=== PATIENT | male | born 1975 | race Caucasian/White ===

== ENCOUNTER 2020-02-26 18:01 | Emergency (ER) | payer OTHER, SELFPAY ==
[2020-02-26 18:13] VITALS: BP 165/91; PULSE 61; RESP 18; TEMP 36.6; O2SAT 98; BMI 34.3
--- NOTE | 2020-02-26 19:06 | CT_ITS ---
EXAMINATION: CT ABDOMEN AND PELVIS WITH CONTRAST CLINICAL INFORMATION: LLQ abd pain. COMPARISON: None. TECHNIQUE: Multidetector volumetric imaging was performed from the superior aspect of the liver through the pubic symphysis following administration of 85 cc of Omnipaque intravenous contrast Sagittal and coronal reformatted images were obtained on the technologist workstation.. This CT examination was performed using dose optimization techniques as appropriate, variously including the following: *Automated exposure control *Adjustment of mA and/or kV according to patient size (this includes techniques or standardized protocols for targeted exams where dose is matched to indication/reason for exam; i.e. extremities or head) *Use of iterative reconstruction technique DLP: 774 mGy-cm FINDINGS: LUNG BASES: The visualized lung bases are unremarkable. LIVER, GALLBLADDER, AND BILIARY TREE: There is diffuse fatty infiltration of the liver with mild focal fatty sparing adjacent to the gallbladder fossa. No focal hepatic lesion nor biliary ductal dilatation. The gallbladder is contracted but otherwise unremarkable with no evidence of radiopaque gallstones, gallbladder wall thickening, or obvious pericholecystic inflammatory changes. PANCREAS: Unremarkable. SPLEEN: Unremarkable. ADRENAL GLANDS: Unremarkable. KIDNEYS AND URETERS: The kidneys are normal in size, shape, and attenuation. No hydronephrosis, hydroureter, or calculi seen. No perinephric stranding. BLADDER: Unremarkable. GASTROINTESTINAL TRACT: The small and large bowel are unremarkable. The appendix is nonvisualized but no focal inflammatory changes are seen in the right lower quadrant. ABDOMINAL WALL: No significant hernia is appreciated. LYMPHOVASCULAR STRUCTURES: No lymphadenopathy. The aorta is unremarkable. PELVIC VISCERA: Unremarkable. OSSEOUS STRUCTURES: Unremarkable. IMPRESSION: Diffuse fatty infiltration the liver but no focal hepatic lesion nor biliary ductal dilatation. Visualized colon is unremarkable. No focal inflammatory changes seen. No acute abnormality seen in the left lower quadrant.
--- NOTE | 2020-02-26 19:07 | ED_ITS ---
HPI - Abdominal Pain General Chief Complaint: Abdominal Pain Stated Complaint: ABD PAIN Time Seen by Provider: 02/26/20 19:02 Source: patient Mode of arrival: ambulatory History of Present Illness HPI narrative: 44-year-old male with past medical history of appendectomy presenting to ED complaining of intermittent /worsening LLQ abdominal pain times months. Reports associated loose stool. Denies fever, chills, nausea /vomiting, dysuria / hematuria, testicular/ scrotal pain /swelling MD elicited complaint: abdominal pain Related Data Previous Rx's Medication Instructions Recorded dicyclomine 20 mg PO BID 14 Days #28 tab 02/26/20 Allergies Allergy/AdvReac Type Severity Reaction Status Date / Time No Known Allergies Allergy Unverified 01/27/20 17:38 Review of Systems Review of Systems Constitutional: No Weight loss, No Fever, No Chills Cardiovascular: No Chest Pain, No SOB Respiratory: No Cough, No Sputum Gastrointestinal: no Nausea, No Vomiting, + Diarrhea, No Constipation, + Abdominal pain Genitourinary: No Dysuria, No Urinary Frequency, No Hematuria, No Urgency, No Flank Pain, No Urinary Flow Changes, No Hesitancy Skin: No Skin Lesions, No rash Yes all other systems are reviewed and are negative Physical Exam Vital Signs: Vital Signs: Vital Signs Temp Pulse Resp BP Pulse Ox 02/26/20 20:55 62 15 160/88 H 98 02/26/20 18:13 97.9 F 61 18 165/91 H 98 Body Mass Index 34.3 Const: General: cooperative and healthy appearing Orientation/con sciousness: patient oriented x3 Limitations: no limitations HENMT: Head: Yes normal to inspection Ears: hearing grossly normal bilaterally General nose exam: Normal external nose present Face and sinus: Yes normal facial exam Eyes: General: appearance normal, both eyes and all related structures EOM: EOMs intact bilaterally Neck: Neck: Yes normal visual inspection Resp: Effort & Inspection: normal respiratory effort Cardio: Rate: regular rate GI: Inspection: Yes normal to inspection Palpation (GI): Soft to palpation, Tenderness to palpation present (GI) in the LLQ, no guarding and not rigid Skin: Rashes: no rashes Wounds: no wounds Neuro: General: patient oriented x3 Gait exam (Neuro): Normal gait present Extrem: General: Yes normal to inspection Course Course Course Narrative: -- labs and UA unremarkable - CT showing diffuse fatty infiltration of the liver. No focal inflammatory changes. No acute abnormality in the left lower quadrant Lab and imaging results discussed with patient including worrisome signs and symptoms and strict return precautions. Patient is to follow-up with GI/is PCP MDM - Abdominal Pain MDM Narrative Medical decision making narrative: 44-year-old male with past medical history of appendectomy presenting to ED complaining of intermittent /worsening LLQ abdominal pain times months. On exam VSS, in the ED, abdomen soft with left lower quadrant tenderness. No rebound or guarding. No CVAT. Concern for diverticulitis vs renal stone vs gastroenteritis/gastritis /colitis. Plan: Labs, UA, CT AP, IVF/symptomatic treatment/reassess Differential Diagnosis Differential diagnosis: Likely abdominal pain, calculus of kidney, diverticulitis, gastroenteritis, gastritis, pancreatitis and renal colic Lab Data Result diagrams: 02/26/20 19:30 02/26/20 19:30 Labs: Lab Results 02/26/20 02/26/20 02/26/20 Range/Units 19:30 19:30 19:30 WBC 7.3 (4.8-10.8) X10*3/uL RBC 5.24 (4.60-5.80) X10*6/uL Hgb 16.0 (14.0-18.0) g/dl Hct 46.9 (42-52) % MCV 89.5 (80-98) fL MCH 30.5 (27.0-33.0) pg MCHC 34.1 (31.0-36.0) g/dl RDW 12.4 (11.0-16.0) % Plt Count 220 (160-400) X10*3/uL MPV 12.0 (9.4-12.4) fL Immature Gran % (Auto) 0.1 (0.0-0.4) % Neut % (Auto) 50.1 (45-73) % Lymph % (Auto) 38.4 (20-40) % Child[place] % (Auto) 9.3 (2-11) % Eos % (Auto) 1.6 (0-4) % Baso % (Auto) 0.5 (0-2) % Lymph # (Auto) 2.8 (1.2-4.9) X10*3/uL Child[place] # (Auto) 0.7 (0.1-1.2) X10*3/uL Eos # (Auto) 0.1 (0.0-0.4) X10*3/uL Baso # (Auto) 0.0 (0.0-0.2) X10*3/uL Abs Immat Gran (auto) 0.01 (0.00-0.03) X10*3/uL Absolute Neuts (auto) 3.7 (2.0-8.3) X10*3/uL Absolute Nucleated RBC 0.000 (0.0-0.012) X10*3/uL Nucleated RBC % (auto) 0.0 (0.0-0.2) /100WBC Hold Blue Top SEE NOTE Sodium 139 (135-145) mmol/L Potassium 4.2 (3.3-5.1) mmol/l Chloride 104 (96-108) mmol/L Carbon Dioxide 26 (22-29) mmol/L Anion Gap 13 (12-20) BUN 11 (9-16) mg/dL Creatinine 1.08 (0.5-1.4) mg/dL Estim Creat Clear Calc 88.6 Estimated GFR > 60 Random Glucose 80 (60-115) mg/dL Calcium 10.6 H (8.4-10.2) mg/dL Magnesium 2.0 (1.6-2.6) mg/dL Total Bilirubin 0.5 (0.0-1.0) mg/dL Direct Bilirubin < 0.2 (0.0-0.5) mg/dL AST 32 (5-37) U/L ALT 63 H (0-40) U/L Alkaline Phosphatase 98 (39-117) U/L Total Protein 8.3 H (6.5-8.0) g/dL Albumin 4.9 (3.5-5.0) g/dL Lipase 27 (8-78) U/L Urine Color Urine Appearance Urine pH (5.0-8.0) Ur Specific [place] (1.005-1.025) Urine Protein (NEG-TRACE) MG/DL Urine Glucose (UA) (NEG) MG/DL Urine Ketones (NEG) MG/DL Urine Blood (NEG) Urine Nitrite (NEG) Ur Leukocyte Esterase (NEG) Urine RBC (0) /HPF Urine WBC (0-4) /HPF Ur Squamous Epith Cells /LPF Urine Bacteria /LPF 02/26/20 Range/Units 19:55 WBC (4.8-10.8) X10*3/uL RBC (4.60-5.80) X10*6/uL Hgb (14.0-18.0) g/dl Hct (42-52) % MCV (80-98) fL MCH (27.0-33.0) pg MCHC (31.0-36.0) g/dl RDW (11.0-16.0) % Plt Count (160-400) X10*3/uL MPV (9.4-12.4) fL Immature Gran % (Auto) (0.0-0.4) % Neut % (Auto) (45-73) % Lymph % (Auto) (20-40) % Childress % (Auto) (2-11) % Eos % (Auto) (0-4) % Baso % (Auto) (0-2) % Lymph # (Auto) (1.2-4.9) X10*3/uL Child[place] # (Auto) (0.1-1.2) X10*3/uL Eos # (Auto) (0.0-0.4) X10*3/uL Baso # (Auto) (0.0-0.2) X10*3/uL Abs Immat Gran (auto) (0.00-0.03) X10*3/uL Absolute Neuts (auto) (2.0-8.3) X10*3/uL Absolute Nucleated RBC (0.0-0.012) X10*3/uL Nucleated RBC % (auto) (0.0-0.2) /100WBC Hold Blue Top Sodium (135-145) mmol/L Potassium (3.3-5.1) mmol/l Chloride (96-108) mmol/L Carbon Dioxide (22-29) mmol/L Anion Gap (12-20) BUN (9-16) mg/dL Creatinine (0.5-1.4) mg/dL Estim Creat Clear Calc Estimated GFR Random Glucose (60-115) mg/dL Calcium (8.4-10.2) mg/dL Magnesium (1.6-2.6) mg/dL Total Bilirubin (0.0-1.0) mg/dL Direct Bilirubin (0.0-0.5) mg/dL AST (5-37) U/L ALT (0-40) U/L Alkaline Phosphatase (39-117) U/L Total Protein (6.5-8.0) g/dL Albumin (3.5-5.0) g/dL Lipase (8-78) U/L Urine Color YELLOW Urine Appearance CLEAR Urine pH 7.0 (5.0-8.0) Ur Specific [place] 1.020 (1.005-1.025) Urine Protein NEG (NEG-TRACE) MG/DL Urine Glucose (UA) NEG (NEG) MG/DL Urine Ketones NEG (NEG) MG/DL Urine Blood TRACE (NEG) Urine Nitrite NEG (NEG) Ur Leukocyte Esterase NEG (NEG) Urine RBC 0-2 (0) /HPF Urine WBC 0 (0-4) /HPF Ur Squamous Epith Cells NONE /LPF Urine Bacteria TRACE /LPF Discharge Plan Discharge Clinical Impression: Abdominal pain Patient Disposition: Home, Self-Care Instructions: Abdominal Pain (ED) Additional Instructions: your blood work was unremarkable today in the ED. Your CT scan showed fatty liver, however no other acute abnormality Bentyl as an antispasmodic medication, take as prescribed Make sure your staying hydrated at home Follow-up with GI and your primary care doctor Prescriptions: New dicyclomine 20 mg tablet 20 mg PO BID 14 Days Qty: 28 RF: 0 Referrals: Blu Boogie MD [Physician] - 5 days PMF Past Medical History Attestation statement: The following information was validated with the patient. Medical History (Updated 02/26/20 @ 21:37 by COLBY Sr) No known health problems No known health problems Surgical History (Updated 02/26/20 @ 19:09 by COLBY Sr) History of appendectomy Social History Social History Alcohol intake: never Smoked in Last 30 Days: No Use of substances other than those prescribed or required for medical reasons: No Advance Directives: No Advance Directives Information Provided: Yes
[2020-02-26 19:36] LABS: MANUAL DIFF FLAG NO
[2020-02-26 19:37] LABS: Basophils Percent Auto 0.5 % (0-2); Eosinophils Absolute Auto 0.1 X10*3/uL (0.0-0.4); Eosinophils Percent Auto 1.6 % (0-4); Hematocrit 46.9 % (42-52); Imm Gran Abs Auto 0.01 X10*3/uL (0.00-0.03); Imm Gran Pct Auto 0.1 % (0.0-0.4); Lymphocytes Absolute Auto 2.8 X10*3/uL (1.2-4.9); Lymphocytes Percent Auto 38.4 % (20-40); Mean Corpuscular HGB Conc 34.1 g/dl (31.0-36.0); Mean Corpuscular Hemoglobin 30.5 pg (27.0-33.0); Mean Corpuscular Volume 89.5 fL (80-98); Monocytes Absolute Auto 0.7 X10*3/uL (0.1-1.2); Monocytes Percent Auto 9.3 % (2-11); Neutrophils Absolute Auto 3.7 X10*3/uL (2.0-8.3); Neutrophils Percent Auto 50.1 % (45-73); Platelet Count 220 X10*3/uL (160-400); Red Blood Count 5.24 X10*6/uL (4.60-5.80); Red Cell Distribution Width 12.4 % (11.0-16.0); White Blood Count 7.3 X10*3/uL (4.8-10.8)
[2020-02-26 20:01] LABS: Glucose Urine UA NEG (NEG); Leukocyte Esterase Urine NEG (NEG); Nitrite Urine NEG (NEG); Urine Blood TRACE (NEG); Urine Ketones NEG (NEG); Urine Protein NEG (NEG-TRACE)
[2020-02-26 20:02] LABS: Appearance Urine CLEAR; Color Urine YELLOW
[2020-02-26 20:07] LABS: RBC Urine 0-2 /HPF (0); WBC Urine 0 /HPF (0-4)
[2020-02-26 20:08] LABS: Bacteria Urine TRACE /LPF
[2020-02-26 20:12] LABS: Alanine Aminotransferase 63 U/L (0-40); Albumin Level 4.9 g/dL (3.5-5.0); Alkaline Phosphatase 98 U/L (39-117); Anion Gap 13 (12-20); Aspartate Amino Transferase 32 U/L (5-37); Bilirubin Direct < 0.2 mg/dL (0.0-0.5); Bilirubin Total 0.5 mg/dL (0.0-1.0); Blood Urea Nitrogen 11 mg/dL (9-16); Calcium 10.6 mg/dL (8.4-10.2); Carbon Dioxide 26 mmol/L (22-29); Chloride 104 mmol/L (96-108); Creatinine Clr Calc Pharmacy 88.6; Estimated Glomerular Filt Rate > 60; Glucose Random 80 mg/dL (60-115); Lipase 27 U/L (8-78); Potassium 4.2 mmol/l (3.3-5.1); Sodium 139 mmol/L (135-145); Total Protein 8.3 g/dL (6.5-8.0)
[2020-02-26] MEDS: iohexoL 350 MG/ML 100 ML INFUS..BTL IV (20:38)
[2020-02-26 20:55] VITALS: BP 160/88; PULSE 62; RESP 15; O2SAT 98
[2020-02-26] MEDS: ondansetron HCL 4 MG/2 ML VIAL IVPUSH (20:58)
[2020-02-26] MEDS: Famotidine/PF 20 MG/2 ML VIAL IVPUSH (20:58)
== END 2020-02-26 22:00 | disposition home or self-care (01) ==
PROVIDERS: Physician Assistant; Emergency Provider Emergency Medicine
DX: R10.32 Left lower quadrant pain (principal)
CPT/HCPCS: 36415; 74177; 80048; 80076; 81001; 81003; 83690; 83735; 85025; 96374; 96375; 99284; J2405

== ENCOUNTER 2020-03-28 12:50 | Outpatient (REF) | payer OTHER, SELFPAY ==
[2020-03-28 14:06] LABS: Alanine Aminotransferase 106 U/L (0-40); Albumin Level 4.7 g/dL (3.5-5.0); Alkaline Phosphatase 92 U/L (39-117); Aspartate Amino Transferase 56 U/L (5-37); Bilirubin Direct 0.2 mg/dL (0.0-0.5); Bilirubin Total 0.5 mg/dL (0.0-1.0); Iron 94 mcg/dL (45-160); Percent Iron Saturation 23 % (15-50); Total Iron Binding Capacity 407 mcg/dL (228-428); Total Protein 8.1 g/dL (6.5-8.0); Unsaturated Iron Binding 313 ug/dL
[2020-03-28 14:19] LABS: Ferritin 117 ng/mL (20-250)
[2020-03-29 08:08] LABS: HBS Num1 > 1000.00 mIU/mL (0-7.99); HBc Num1 0.07 S/CO (0.00-0.79); HBsAGNum1 0.13 S/CO (0.00-0.99); Hepatitis B Core Antibody Nonreactive (Nonreactive); Hepatitis B Surface Antigen Negative (Negative); ~HepC Num1 0.08 S/CO (0.00-0.79); ~Hepatitis B Surface Antibody REACTIVE (Nonreactive); ~Hepatitis C Antibody Nonreactive (Nonreactive)
[2020-03-29 16:46] LABS: Ceruloplasmin 26 mg/dL (18-36)
== END 2020-03-28 12:51 | disposition home or self-care (01) ==
LOC: HO.LAB 12:50
PROVIDERS: Visit Provider Internal Medicine
DX: Z01.84 Encounter for antibody response examination (principal); R79.89 Other specified abnormal findings of blood chemistry
CPT/HCPCS: 80076; 82390; 82728; 83540; 86704; 86706; 86803; 87340

== ENCOUNTER 2020-03-31 17:22 | Outpatient (REF) | payer OTHER, SELFPAY | END 2020-03-31 17:23 | disposition home or self-care (01) | LOC: HO.LAB 17:22 | PROVIDERS: Visit Provider Internal Medicine | DX: Z20.828 Contact with and (suspected) exposure to other viral communicable diseases (principal) | CPT/HCPCS: C9803; U0003 ==

== ENCOUNTER 2020-04-13 14:53 | Outpatient (REF) | payer OTHER, SELFPAY | END 2020-04-13 14:54 | disposition home or self-care (01) | LOC: HO.LAB 14:53 | PROVIDERS: Visit Provider Internal Medicine | DX: Z20.828 Contact with and (suspected) exposure to other viral communicable diseases (principal) | CPT/HCPCS: C9803; U0003 ==

== ENCOUNTER 2020-05-09 09:13 | Emergency (ER) | payer OTHER, SELFPAY ==
--- NOTE | 2020-05-09 | ECG_ITS ---
Test Reason : CHEST PAIN Blood Pressure : / mmHG Vent. Rate : 070 BPM Atrial Rate : 070 BPM P-R Int : 160 ms QRS Dur : 088 ms QT Int : 384 ms P-R-T Axes : 016 013 018 degrees QTc Int : 414 ms Normal sinus rhythm Nonspecific T wave abnormality Abnormal ECG No previous ECGs available Referred By: Generic ED Physician Electronically Signed By:JANETT PIZARRO
--- NOTE | 2020-05-09 | XR_ITS ---
EXAMINATION: XR CHEST CLINICAL INFORMATION: Chest pain. COMPARISON: None TECHNIQUE: 2 views of the chest were obtained. FINDINGS: No significant abnormality is noted involving the heart, lungs, mediastinum, bony thorax or soft tissues. XR/XR chest 2V IMPRESSION: No acute cardiopulmonary process.
[2020-05-09 09:15] VITALS: BP 158/80; PULSE 81; RESP 20; TEMP 36.8; O2SAT 98; BMI 32.5
[2020-05-09 11:52] LABS: Basophils Percent Auto 0.3 % (0-2); Eosinophils Absolute Auto 0.1 X10*3/uL (0.0-0.4); Eosinophils Percent Auto 1.2 % (0-4); Hematocrit 43.8 % (42-52); Imm Gran Abs Auto 0.01 X10*3/uL (0.00-0.03); Imm Gran Pct Auto 0.2 % (0.0-0.4); Lymphocytes Absolute Auto 2.4 X10*3/uL (1.2-4.9); Lymphocytes Percent Auto 36.8 % (20-40); Mean Corpuscular HGB Conc 34.2 g/dl (31.0-36.0); Mean Corpuscular Hemoglobin 30.4 pg (27.0-33.0); Mean Corpuscular Volume 88.7 fL (80-98); Mean Platelet Volume 12.3 fL (9.4-12.4); Monocytes Absolute Auto 0.6 X10*3/uL (0.1-1.2); Monocytes Percent Auto 9.2 % (2-11); Neutrophils Absolute Auto 3.4 X10*3/uL (2.0-8.3); Neutrophils Percent Auto 52.3 % (45-73); Platelet Count 201 X10*3/uL (160-400); Red Blood Count 4.94 X10*6/uL (4.60-5.80); Red Cell Distribution Width 12.8 % (11.0-16.0); White Blood Count 6.5 X10*3/uL (4.8-10.8)
[2020-05-09 11:53] LABS: MANUAL DIFF FLAG NO
[2020-05-09 12:19] LABS: Anion Gap 13 (12-20); Blood Urea Nitrogen 10 mg/dL (9-16); Calcium 9.5 mg/dL (8.4-10.2); Carbon Dioxide 26 mmol/L (22-29); Chloride 106 mmol/L (96-108); Creatinine Clr Calc Pharmacy 91.4; Estimated Glomerular Filt Rate > 60; Glucose Random 92 mg/dL (60-115); Potassium 4.2 mmol/l (3.3-5.1); Sodium 141 mmol/L (135-145)
[2020-05-09 12:27] LABS: Troponin-I High Sensitivity < 3.5 ng/L (<3.5-35.0)
--- NOTE | 2020-05-09 14:15 | PC.NURSE ---
TO BED 12 AFTER EXTENDED WAIT IN WR. PROTOCOL LABS, EKG AND XRAY ALL UNREMARKABLE. PT'S PRIMARY CONCERN IS A SORE THROAT. VITALS UPDATED
[2020-05-09 14:17] VITALS: BP 149/63; PULSE 61; O2SAT 97
--- NOTE | 2020-05-09 14:27 | ED.CHESTPAIN ---
HPI - Chest Pain General Chief Complaint: Chest Pain Stated Complaint: chest pain Time Seen by Provider: 05/09/20 14:21 Source: patient Mode of arrival: ambulatory Limitations: no limitations History of Present Illness HPI narrative: 45yoM c PMHx of hypertension, GERD and depression presenting to the ED c c/o chest wall pain after caring a marble table and getting hit with it on the left side of his chest worse with palpitation or movement. Patient denies any other injuries from this. Also reports that he has has had a scratchy/sore throat for the past 2 days although reports he was tested for COVID at [facility] approximately 3 days ago and was just called today that it was negative. Denies any other complaints or concerns at this time. Denies recent sick contacts or travel. Related Data Previous Rx's Medication Instructions Recorded dicyclomine 20 mg PO BID 14 Days #28 tab 02/26/20 amoxicillin-pot clavulanate 1 tab PO BID 10 Days #20 tab 05/09/20 [Augmentin] cyclobenzaprine 10 mg PO TID PRN #10 tab 05/09/20 naproxen 500 mg PO BID PRN #10 tab 05/09/20 Allergies Allergy/AdvReac Type Severity Reaction Status Date / Time No Known Allergies Allergy Unverified 01/27/20 17:38 Review of Systems Review of Systems: Constitutional : No Weight loss, No Fever, No Chills, No Night Sweats, No Fatigue, No Malaise ENT/Mouth : No Hearing loss, No Ear Pain, No Nasal Congestion, No Sinus Pain, No Hoarseness, + sore throat, No Rhinorrhea, No Swallowing Difficulty Eyes: No Eye Pain, No Swelling, No Redness, No Foreign Body, No Discharge, No Vision Changes Cardiovascular : + Chest wall pain, No SOB, no Dyspnea on Exertion, No Orthopnea, No Edema, No extremity swelling, No Palpitations Respiratory : No Cough, No Sputum, No Wheezing, No Dyspnea Gastrointestinal : No Nausea, No Vomiting, No Diarrhea, No abdominal Pain, No Hematochezia, No Melena Genitourinary : No irregular bleeding, No Dysuria, No Urinary Frequency, No Hematuria, No Urinary Incontinence, No Urgency, No Flank Pain, No Urinary Flow Changes, No Hesitancy Musculoskeletal : No joint pain, No Myalgias, No Joint Swelling Skin : No Skin Lesions, No rash Neuro : No Weakness, No Numbness, No Paresthesias, No Loss of Consciousness, No Dizziness, No Headache Psych : No Anxiety/Panic, No Depression, No SI/HI/AH/VH Heme/Lymph: No Bruising, No Bleeding,No Lymphadenopathy Endocrine : No Polyuria, No Polydipsia, No Temperature Intolerance Yes all other systems are reviewed and are negative [facility] Past Medical History Attestation statement: The following information was validated with the patient. Medical History (Updated 05/09/20 @ 14:43 by COLBY Juarez) No known health problems No known health problems Surgical History History of appendectomy Social History Social History Alcohol intake: never Advance Directives: No Advance Directives Information Provided: No Physical Exam Vital Signs: Vital Signs: Last Vital Signs Temp 98.2 F 05/09/20 09:15 Pulse 61 05/09/20 14:17 Resp 20 05/09/20 09:15 BP 149/63 H 05/09/20 14:17 Pulse Ox 97 05/09/20 14:17 Body Mass Index 32.5 vital signs have been reviewed as normal and appeared to be correct. Blood pressure normal. Heart rate normal. Respiration rate normal. Temperature normal. Oxygen saturation normal. Appearance: Alert. Oriented X3. No acute distress. Head: Normal external exam. Normocephalic. Atraumatic. No Varela signs noted. No raccoon eyes noted Eyes: PERRLA. EOMI. Conjunctiva and sclera normal. Eyelids normal. ENT: EAC normal. TM's Normal. Bilateral tonsils erythematous with exudate noted. Not consistent with peritonsillar abscess Uvula midline. Moist mucous membranes. No trismus noted. No drooling noted. No muffled voice noted. Neck: Normal inspection. Neck supple. FROM. No adenopathy. Thyroid Normal. No meningeal signs. No neck mass noted. CVS: Normal heart rate and rhythm. Heart sound normal. No murmurs noted. Pulses normal throughout. Respiratory: No respiratory distress. Painless inspiration. Breath sounds normal. No wheezes/rales/rhonchi noted. Chest with tenderness to palpation of anterior left chest wall with ecchymosis noted. No accessory muscle usage noted or decreased air movement noted. Abdomen: Soft and nontender. Bowel sounds normal in all 4 quadrants. No distention noted. No organomegaly noted. No visible injury noted. Back: No CVA tenderness. Full range of motion noted. Skin: Skin warm and dry. Normal skin color. Normal skin turgor. No rashes/lesions/lacerations noted. Extremities: No lower extremity edema. Extremities exhibit normal range of motion. Extremities nontender. Neuro: Oriented X 3. No motor deficit. No sensory deficit. Reflexes normal. Course Course Course Narrative: 45yoM c PMHx of hypertension, GERD and depression presenting to the ED c c/o chest wall pain after caring a marble table and getting hit with it on the left side of his chest worse with palpitation or movement x 2-3 days ago. Patient also reports a sore throat. Denies sick contacts or recent travel. Denies any other symptoms complaints or concerns at this time. - Patient had a mechanical injury has reproducible pain and ecchymosis noted. Patient also reports this pain has been consistent for the last 2-3 days after the injury. - therefore labs obtained and all within normal limits including the troponin. EKG is normal sinus rhythm with nonspecific T-wave abnormality no acute ischemic changes noted at this time. - therefore explained to the patient that most likely he has muscle strain and will DC home with symptomatic treatment will also swab the patient for rapid strep/COVID/swab/RSV and treat for pharyngitis and instructions to return if any new or worsening symptoms. Patient and agrees with plan. MDM - Chest Pain Medical Records Data Attestation: I reviewed the patient's medical records. Lab Data Attestation: I reviewed the patient's lab results. Result diagrams: 05/09/20 11:44 05/09/20 11:44 Labs: Lab Results 05/09/20 05/09/20 05/09/20 Range/Units 11:44 11:44 11:44 WBC 6.5 (4.8-10.8) X10*3/uL RBC 4.94 (4.60-5.80) X10*6/uL Hgb 15.0 (14.0-18.0) g/dl Hct 43.8 (42-52) % MCV 88.7 (80-98) fL MCH 30.4 (27.0-33.0) pg MCHC 34.2 (31.0-36.0) g/dl RDW 12.8 (11.0-16.0) % Plt Count 201 (160-400) X10*3/uL MPV 12.3 (9.4-12.4) fL Immature Gran % (Auto) 0.2 (0.0-0.4) % Neut % (Auto) 52.3 (45-73) % Lymph % (Auto) 36.8 (20-40) % [place] % (Auto) 9.2 (2-11) % Eos % (Auto) 1.2 (0-4) % Baso % (Auto) 0.3 (0-2) % Lymph # (Auto) 2.4 (1.2-4.9) X10*3/uL [place] # (Auto) 0.6 (0.1-1.2) X10*3/uL Eos # (Auto) 0.1 (0.0-0.4) X10*3/uL Baso # (Auto) 0.0 (0.0-0.2) X10*3/uL Abs Immat Gran (auto) 0.01 (0.00-0.03) X10*3/uL Absolute Neuts (auto) 3.4 (2.0-8.3) X10*3/uL Absolute Nucleated RBC 0.000 (0.0-0.012) X10*3/uL Nucleated RBC % (auto) 0.0 (0.0-0.2) /100WBC Hold Blue Top SEE NOTE Sodium 141 (135-145) mmol/L Potassium 4.2 (3.3-5.1) mmol/l Chloride 106 (96-108) mmol/L Carbon Dioxide 26 (22-29) mmol/L Anion Gap 13 (12-20) BUN 10 (9-16) mg/dL Creatinine 1.01 (0.5-1.4) mg/dL Estim Creat Clear Calc 91.4 Estimated GFR > 60 Random Glucose 92 (60-115) mg/dL Calcium 9.5 D (8.4-10.2) mg/dL Troponin I High Sens (<3.5-35.0) ng/L 05/09/20 Range/Units 11:44 WBC (4.8-10.8) X10*3/uL RBC (4.60-5.80) X10*6/uL Hgb (14.0-18.0) g/dl Hct (42-52) % MCV (80-98) fL MCH (27.0-33.0) pg MCHC (31.0-36.0) g/dl RDW (11.0-16.0) % Plt Count (160-400) X10*3/uL MPV (9.4-12.4) fL Immature Gran % (Auto) (0.0-0.4) % Neut % (Auto) (45-73) % Lymph % (Auto) (20-40) % [place] % (Auto) (2-11) % Eos % (Auto) (0-4) % Baso % (Auto) (0-2) % Lymph # (Auto) (1.2-4.9) X10*3/uL [place] # (Auto) (0.1-1.2) X10*3/uL Eos # (Auto) (0.0-0.4) X10*3/uL Baso # (Auto) (0.0-0.2) X10*3/uL Abs Immat Gran (auto) (0.00-0.03) X10*3/uL Absolute Neuts (auto) (2.0-8.3) X10*3/uL Absolute Nucleated RBC (0.0-0.012) X10*3/uL Nucleated RBC % (auto) (0.0-0.2) /100WBC Hold Blue Top Sodium (135-145) mmol/L Potassium (3.3-5.1) mmol/l Chloride (96-108) mmol/L Carbon Dioxide (22-29) mmol/L Anion Gap (12-20) BUN (9-16) mg/dL Creatinine (0.5-1.4) mg/dL Estim Creat Clear Calc Estimated GFR Random Glucose (60-115) mg/dL Calcium (8.4-10.2) mg/dL Troponin I High Sens < 3.5 (<3.5-35.0) ng/L Imaging Data Chest x-ray: Attestation: I personally reviewed and interpreted this imaging study as follows: Radiologist's impression: IMPRESSION: No acute cardiopulmonary process. ECG Data ECG #1: Attestation: I personally reviewed and interpreted this ECG as follows: ECG interpretation date: 05/09/20 ECG interpretation time: 09:37 Interpretation: Normal sinus rhythm with a ventricular rate of 70 with nonspecific T-wave abnormalities normal QT/QTC interval normal QRS no acute ischemic changes. No prior EKGs to compare at this time. Discharge Plan Discharge Clinical Impression: Chest wall injury, Muscle strain of chest wall, Pharyngitis Patient Disposition: Home, Self-Care Instructions: Pharyngitis (ED), Muscle Spasm (ED), Chest Wall Pain (ED) Additional Instructions: Based on your symptoms and history we have sent a COVID-19. Although your RESULT IS PENDING at this time. RESULTS should return within 72 hours. At this time you will be contacted with either NEGATIVE OR POSITIVE results. -Please wait until we contact you for your results. At this time you will be okay for discharge. Please plan for self quarantine for up to 14 days. Do not expose yourself to others. You may not go to work. If testing does come back negative you may return to activities as long as you are no longer having any symptoms for at least 3 days. Please continue to follow cold instructions and wash your hands frequently. You may take Tylenol as directed on the bottle for pain or fever. Patient seen in the emergency department on 05/09/2020 and should be excused from work until negative test results AND until 72 hours without any symptoms AND at least 10 days have passed since symptoms first appeared or since last exposure to COVID-19 positive patient CDC Guidelines for home isolation: - Stay away from others - WEAR A MASK if you are sick AND STAY HOME - Cover your mouth and nose with a tissue when you cough or sneeze. Dispose of tissues in a lined trash can and wash your hands immediately with soap and water for at least 20 seconds. If soap and water are not available, clean hands with alcohol-based hand american indian studies professor that contains at least 60% alcohol. - Clean your hands often with soap and water for at least 20 seconds - Avoid touching your eyes, nose and mouth with unwashed hands - Do not share dishes, drinking glasses, cups, eating utensils, towels, or bedding with other people in your home. After using these items, wash them thoroughly with soap and water or put in the semiconductor engineer. - Clean high-touch surfaces in your isolation area ( sick room and bathroom) every day; let a caregiver clean and disinfect high-touch surfaces in other areas of the home. Clean the area or item with soap and water or another detergent if it is dirty. Then, use a household disinfectant. - Limit contact with pets and animals: If you must care for a pet, wash your hands before and after interacting with them). Prescriptions: New amoxicillin-pot clavulanate [Augmentin] 875-125 mg tablet 1 tab PO BID 10 Days Qty: 20 RF: 0 cyclobenzaprine 10 mg tablet 10 mg PO TID PRN (Reason: muscle spasm) Qty: 10 RF: 0 naproxen 500 mg tablet 500 mg PO BID PRN (Reason: pain) Qty: 10 RF: 0 No Action dicyclomine 20 mg tablet 20 mg PO BID 14 Days Qty: 28 RF: 0 Referrals: [facility] [Primary Care Provider] - 2 days Print Language: Pashto
[2020-05-09] MEDS: dexAMETHasone 2 MG TABLET 10 MG PO (14:53)
[2020-05-09] MEDS: Amoxicillin/Potassium Clav 875 MG TABLET PO (14:53)
[2020-05-09 15:20] LABS: Influenza A PCR NEGATIVE (Negative); Influenza B PCR NEGATIVE (Negative); Resp Syncy Virus RNA Qual PCR NEGATIVE (Negative); SARS COV2 PCR INHOUSE POSITIVE (Negative)
== END 2020-05-09 15:02 | disposition home or self-care (01) ==
PROVIDERS: Physician Assistant Medical; Emergency Provider Emergency Medicine Emergency Medical Services
DX: R07.89 Other chest pain (principal); J02.9 Acute pharyngitis, unspecified; K21.9 Gastro-esophageal reflux disease without esophagitis; Z79.899 Other long term (current) drug therapy; Z20.828 Contact with and (suspected) exposure to other viral communicable diseases
CPT/HCPCS: 0241U; 36415; 71046; 80048; 84484; 85025; 87071; 87880; 93005; 99283; J8540

== ENCOUNTER 2020-06-16 21:09 | Emergency (ER) | payer OTHER, SELFPAY ==
--- NOTE | ~2020-06-16 | XR_ITS ---
EXAMINATION: CHEST 1 VIEW CLINICAL INFORMATION: Chest pain. COMPARISON: 05/09/2020. TECHNIQUE: An AP view of the chest is provided. FINDINGS: The cardiac silhouette is not enlarged. The mediastinal and hilar contours are unremarkable. There are neither pleural effusions nor pneumothoraces. There are no consolidations. The osseous structures are unremarkable. XR/XR chest 1V IMPRESSION: No evidence for acute disease.
[2020-06-16 23:11] VITALS: BP 198/92; PULSE 73; RESP 18; TEMP 35.7; O2SAT 97; BMI 32.5
[2020-06-17 00:29] VITALS: BP 157/78; PULSE 67; RESP 25; O2SAT 97
--- NOTE | 2020-06-17 00:34 | PC.NURSE ---
Pt a&o, no sob . pt ambulating in room with no sign of distress. pt complaining burning pain in chest that he has had for over a month. No n/v. Pt placed on tele monitor-normal sinus.
--- NOTE | 2020-06-17 00:58 | ECG_ITS ---
Test Reason : GENERAL Blood Pressure : / mmHG Vent. Rate : 070 BPM Atrial Rate : 070 BPM P-R Int : 176 ms QRS Dur : 088 ms QT Int : 396 ms P-R-T Axes : 011 024 017 degrees QTc Int : 427 ms Normal sinus rhythm Normal EKG When compared with ECG of 09 may 2020, No significant changes seen Referred By: Dex Mcmahon Electronically Signed By: JNAETT CARTER
--- NOTE | 2020-06-17 00:59 | ED.GENADULT ---
HPI - General Adult General Chief complaint: General Medical Stated complaint: chest burning Time Seen by Provider: 06/17/20 00:57 History of Present Illness HPI narrative: 45-year-old male history of hypertension, GERD and depression came into the emergency department with complaining of left-sided chest pain, patient describes the pain as burning pain, pain started few weeks ago was evaluated in the emergency department for similar pain 6 weeks ago after lifting heavy marble table patient was discharged with muscle relaxant and he is still awaiting for stencil machine operator call to set up an appointment, pain is localized to the left upper chest wall, no radiation, no other associated symptoms, nothing makes the pain worse, nothing makes the pain better. Patient has no recent travel history, no lower extremity swelling, no lower extremity tenderness no history of DVT/PE. Related Data Previous Rx's Medication Instructions Recorded dicyclomine 20 mg PO BID 14 Days #28 tab 02/26/20 amoxicillin-pot clavulanate 1 tab PO BID 10 Days #20 tab 05/09/20 [Augmentin] cyclobenzaprine 10 mg PO TID PRN #10 tab 05/09/20 naproxen 500 mg PO BID PRN #10 tab 05/09/20 Allergies Allergy/AdvReac Type Severity Reaction Status Date / Time No Known Allergies Allergy Unverified 01/27/20 17:38 Review of Systems Review of Systems: All other systems are reviewed and are negative Constitutional: Reports as per HPI and Reports no additional constitutional complaints Eyes: Reports as per HPI and Reports no additional eye complaints Reports system reviewed and no additional complaints, except as documented Cardiovascular: Reports as per HPI and Reports no additional cardiovascular complaints Respiratory: Reports as per HPI and Reports no additional respiratory complaints Gastrointestinal: Reports as per HPI and Reports no additional gastrointestinal complaints Genitourinary: Reports no additional female genitourinary complaints Musculoskeletal: Reports no additional musculoskeletal complaints Skin/Breast: Reports system reviewed and no additional complaints, except as docu Psychiatric: Reports no additional psychiatric complaints Endocrine: Reports no additional endocrine complaints Hematologic/Lymphatic: Reports no additional hematologic/lymphatic complaints Allergic/Immunologic: Reports no additional allergic/immunologic complaints Reports system reviewed and no additional complaints, except as documented and Reports Abnormal speech present PMFSH Past Medical History Medical History No known health problems No known health problems Surgical History History of appendectomy Social History Social History Alcohol intake: current Alcohol intake frequency: holidays/special occasions only Smoking Status: Never smoker Smoked in Last 30 Days: No Use of substances other than those prescribed or required for medical reasons: No Advance Directives: No Advance Directives Information Provided: No Physical Exam Vital Signs: Vital Signs: Last Vital Signs Temp 98.7 F 06/17/20 02:00 Pulse 64 06/17/20 02:00 Resp 22 H 06/17/20 02:00 BP 161/64 H 06/17/20 02:00 Pulse Ox 99 06/17/20 02:00 Body Mass Index 32.5 Vital signs have been reviewed as normal and appeared to be correct. Blood pressure in the high range. Heart rate normal. Respiration rate in the high range. Temperature normal. Oxygen saturation normal. Appearance: Alert. Oriented X3. No acute distress. Head: Normal external exam. Normocephalic. Atraumatic. No Varela signs noted. No raccoon eyes noted Eyes: PERRLA. EOMI. Conjunctiva and sclera normal. Eyelids normal. ENT: EAC normal. TM's Normal. Pharynx normal. Uvula midline. Moist mucous membranes. No trismus noted. No drooling noted. No muffled voice noted. Neck: Normal inspection. Neck supple. FROM. No adenopathy. Thyroid Normal. No meningeal signs. No neck mass noted. CVS: Normal heart rate and rhythm. Heart sound normal. No murmurs noted. Pulses normal throughout. Respiratory: No respiratory distress. Painless inspiration. Breath sounds normal. No wheezes/rales/rhonchi noted. Chest nontender. No accessory muscle usage noted or decreased air movement noted. Abdomen: Soft and nontender. Bowel sounds normal in all 4 quadrants. No distention noted. No organomegaly noted. No visible injury noted. Back: No CVA tenderness. Full range of motion noted. Skin: Skin warm and dry. Normal skin color. Normal skin turgor. No rashes/lesions/lacerations noted. Extremities: No lower extremity edema. Extremities exhibit normal range of motion. Extremities nontender. Neuro: Oriented X 3. No motor deficit. No sensory deficit. Reflexes normal. Course Course Course Narrative: Assessment and plan. 45 years old male with left-sided chest pain for many weeks, patient had previous ED visits for similar symptoms, today's finding is unremarkable for cardiopulmonary etiology of the patient's symptoms, patient had unchanged EKG/normal troponin/normal D-dimer. Elevated LFTs patient was instructed to follow-up with PCP. Will discharge the patient to follow-up with stencil machine operator. Patient was HEART score of 1 Medical Decision Making Lab Data Lab results reviewed: Yes I reviewed the patient's lab results. Result diagrams: 06/17/20 02:35 06/17/20 02:35 Labs: Lab Results 06/17/20 06/17/20 06/17/20 Range/Units 02:35 02:35 02:35 WBC 6.9 (4.8-10.8) X10*3/uL RBC 4.51 L (4.60-5.80) X10*6/uL Hgb 13.8 L (14.0-18.0) g/dl Hct 40.7 L (42-52) % MCV 90.2 (80-98) fL MCH 30.6 (27.0-33.0) pg MCHC 33.9 (31.0-36.0) g/dl RDW 12.9 (11.0-16.0) % Plt Count 198 (160-400) X10*3/uL MPV 12.0 (9.4-12.4) fL Immature Gran % (Auto) 0.1 (0.0-0.4) % Neut % (Auto) 40.2 L (45-73) % Lymph % (Auto) 46.0 H (20-40) % [place] % (Auto) 11.0 (2-11) % Eos % (Auto) 2.3 (0-4) % Baso % (Auto) 0.4 (0-2) % Lymph # (Auto) 3.2 (1.2-4.9) X10*3/uL [place] # (Auto) 0.8 (0.1-1.2) X10*3/uL Eos # (Auto) 0.2 (0.0-0.4) X10*3/uL Baso # (Auto) 0.0 (0.0-0.2) X10*3/uL Abs Immat Gran (auto) 0.01 (0.00-0.03) X10*3/uL Absolute Neuts (auto) 2.8 (2.0-8.3) X10*3/uL Absolute Nucleated RBC 0.000 (0.0-0.012) X10*3/uL Nucleated RBC % (auto) 0.0 (0.0-0.2) /100WBC D-Dimer < 200 NG/ML Sodium 141 (135-145) mmol/L Potassium 4.0 (3.3-5.1) mmol/L Chloride 104 (96-108) mmol/L Carbon Dioxide 30 H (22-29) mmol/L Anion Gap 11 L (12-20) BUN 12 (9-16) mg/dL Creatinine 1.02 (0.5-1.4) mg/dL Estim Creat Clear Calc 90.5 Estimated GFR > 60 Random Glucose 87 (60-115) mg/dL Calcium 9.4 (8.4-10.2) mg/dL Total Bilirubin 0.2 (0.0-1.0) mg/dL Direct Bilirubin < 0.2 (0.0-0.5) mg/dL AST 53 H (5-37) U/L ALT 89 H (0-40) U/L Alkaline Phosphatase 91 (39-117) U/L Troponin I High Sens (<3.5-35.0) ng/L Total Protein 7.3 (6.5-8.0) g/dL Albumin 4.5 (3.5-5.0) g/dL Lipase 45 (8-78) U/L Urine Color Urine Appearance Urine pH (5.0-8.0) Ur Specific [place] (1.005-1.025) Urine Protein (NEG-TRACE) MG/DL Urine Glucose (UA) (NEG) MG/DL Urine Ketones (NEG) MG/DL Urine Blood (NEG) Urine Nitrite (NEG) Ur Leukocyte Esterase (NEG) 06/17/20 06/17/20 Range/Units 02:35 02:35 WBC (4.8-10.8) X10*3/uL RBC (4.60-5.80) X10*6/uL Hgb (14.0-18.0) g/dl Hct (42-52) % MCV (80-98) fL MCH (27.0-33.0) pg MCHC (31.0-36.0) g/dl RDW (11.0-16.0) % Plt Count (160-400) X10*3/uL MPV (9.4-12.4) fL Immature Gran % (Auto) (0.0-0.4) % Neut % (Auto) (45-73) % Lymph % (Auto) (20-40) % [place] % (Auto) (2-11) % Eos % (Auto) (0-4) % Baso % (Auto) (0-2) % Lymph # (Auto) (1.2-4.9) X10*3/uL [place] # (Auto) (0.1-1.2) X10*3/uL Eos # (Auto) (0.0-0.4) X10*3/uL Baso # (Auto) (0.0-0.2) X10*3/uL Abs Immat Gran (auto) (0.00-0.03) X10*3/uL Absolute Neuts (auto) (2.0-8.3) X10*3/uL Absolute Nucleated RBC (0.0-0.012) X10*3/uL Nucleated RBC % (auto) (0.0-0.2) /100WBC D-Dimer NG/ML Sodium (135-145) mmol/L Potassium (3.3-5.1) mmol/L Chloride (96-108) mmol/L Carbon Dioxide (22-29) mmol/L Anion Gap (12-20) BUN (9-16) mg/dL Creatinine (0.5-1.4) mg/dL Estim Creat Clear Calc Estimated GFR Random Glucose (60-115) mg/dL Calcium (8.4-10.2) mg/dL Total Bilirubin (0.0-1.0) mg/dL Direct Bilirubin (0.0-0.5) mg/dL AST (5-37) U/L ALT (0-40) U/L Alkaline Phosphatase (39-117) U/L Troponin I High Sens < 3.5 (<3.5-35.0) ng/L Total Protein (6.5-8.0) g/dL Albumin (3.5-5.0) g/dL Lipase (8-78) U/L Urine Color YELLOW Urine Appearance CLEAR Urine pH 6.0 (5.0-8.0) Ur Specific [place] 1.025 (1.005-1.025) Urine Protein NEG (NEG-TRACE) MG/DL Urine Glucose (UA) NEG (NEG) MG/DL Urine Ketones NEG (NEG) MG/DL Urine Blood NEG (NEG) Urine Nitrite NEG (NEG) Ur Leukocyte Esterase NEG (NEG) Imaging Data Chest x-ray: Radiologist's impression: No evidence for acute disease. ECG Data Interpretation: Normal sinus rhythm at 63 beats per minutes, nonspecific ST-T changes, normal axis, normal intervals, no change from old EKG. Discharge Plan Discharge Clinical Impression: Hypertension, Elevated liver function tests, Chest pain Patient Disposition: Home, Self-Care Instructions: Hypertension (ED), Chest Pain (ED) Prescriptions: No Action dicyclomine 20 mg tablet 20 mg PO BID 14 Days Qty: 28 RF: 0 amoxicillin-pot clavulanate [Augmentin] 875-125 mg tablet 1 tab PO BID 10 Days Qty: 20 RF: 0 cyclobenzaprine 10 mg tablet 10 mg PO TID PRN (Reason: muscle spasm) Qty: 10 RF: 0 naproxen 500 mg tablet 500 mg PO BID PRN (Reason: pain) Qty: 10 RF: 0 Referrals: Physician,Unknown [Primary Care Provider] - 2 days Samy Barone MD [Physician] - 2 days
[2020-06-17 02:00] VITALS: BP 161/64; PULSE 64; RESP 22; TEMP 37.1; O2SAT 99
--- NOTE | 2020-06-17 02:39 | PC.NURSE ---
PT IN NO APPARENT DISTRESS, PT IV PLACED. LABS AND URINE COLLECTED AND SENT
[2020-06-17 02:42] LABS: Basophils Percent Auto 0.4 % (0-2); Eosinophils Absolute Auto 0.2 X10*3/uL (0.0-0.4); Eosinophils Percent Auto 2.3 % (0-4); Glucose Urine UA NEG (NEG); Hematocrit 40.7 % (42-52); Hemoglobin 13.8 g/dl (14.0-18.0); Imm Gran Abs Auto 0.01 X10*3/uL (0.00-0.03); Imm Gran Pct Auto 0.1 % (0.0-0.4); Leukocyte Esterase Urine NEG (NEG); Lymphocytes Absolute Auto 3.2 X10*3/uL (1.2-4.9); MANUAL DIFF FLAG NO; Mean Corpuscular HGB Conc 33.9 g/dl (31.0-36.0); Mean Corpuscular Hemoglobin 30.6 pg (27.0-33.0); Mean Corpuscular Volume 90.2 fL (80-98); Monocytes Absolute Auto 0.8 X10*3/uL (0.1-1.2); Neutrophils Absolute Auto 2.8 X10*3/uL (2.0-8.3); Neutrophils Percent Auto 40.2 % (45-73); Nitrite Urine NEG (NEG); Platelet Count 198 X10*3/uL (160-400); Red Blood Count 4.51 X10*6/uL (4.60-5.80); Red Cell Distribution Width 12.9 % (11.0-16.0); Specific Gravity - Urine 1.025 (1.005-1.025); Urine Blood NEG (NEG); Urine Ketones NEG (NEG); Urine Protein NEG (NEG-TRACE); White Blood Count 6.9 X10*3/uL (4.8-10.8)
[2020-06-17 02:43] LABS: Appearance Urine CLEAR; Color Urine YELLOW
[2020-06-17 02:51] LABS: D Dimer < 200 NG/ML
[2020-06-17] MEDS: Magnesium Hydrox/Alum Hydrox 30 ML ORAL.SUSP PO (02:54)
[2020-06-17] MEDS: Lidocaine HCl Viscous 2 % 15 ML SOLUTION 10 ML MUCOUS MEM (02:54)
--- NOTE | 2020-06-17 03:03 | PC.NURSE ---
medicated per mar.
[2020-06-17 03:10] LABS: Alanine Aminotransferase 89 U/L (0-40); Albumin Level 4.5 g/dL (3.5-5.0); Alkaline Phosphatase 91 U/L (39-117); Anion Gap 11 (12-20); Aspartate Amino Transferase 53 U/L (5-37); Bilirubin Direct < 0.2 mg/dL (0.0-0.5); Bilirubin Total 0.2 mg/dL (0.0-1.0); Blood Urea Nitrogen 12 mg/dL (9-16); Calcium 9.4 mg/dL (8.4-10.2); Carbon Dioxide 30 mmol/L (22-29); Chloride 104 mmol/L (96-108); Creatinine Clr Calc Pharmacy 90.5; Estimated Glomerular Filt Rate > 60; Glucose Random 87 mg/dL (60-115); Lipase 45 U/L (8-78); Sodium 141 mmol/L (135-145); Total Protein 7.3 g/dL (6.5-8.0)
[2020-06-17 03:12] LABS: Troponin-I High Sensitivity < 3.5 ng/L (<3.5-35.0)
[2020-06-17 04:55] VITALS: RESP 16
== END 2020-06-17 05:02 | disposition home or self-care (01) ==
PROVIDERS: Emergency Provider Emergency Medicine
DX: R07.9 Chest pain, unspecified (principal); I10 Essential (primary) hypertension; R79.89 Other specified abnormal findings of blood chemistry; Z79.899 Other long term (current) drug therapy
CPT/HCPCS: 36415; 71045; 80048; 80076; 81003; 83690; 84484; 85025; 85379; 93005; 99283; 99284

== ENCOUNTER → 2020-06-22 10:01 | Outpatient (BNVA) | payer OTHER, SELFPAY | PROVIDERS: Visit Provider Internal Medicine | DX: R07.2 Precordial pain (principal); I10 Essential (primary) hypertension | CPT/HCPCS: 99202 ==

== ENCOUNTER 2020-07-03 14:02 | Outpatient (REF) | payer OTHER, SELFPAY ==
[2020-07-03 14:43] LABS: Hematocrit 44.5 % (42-52); Hemoglobin 14.8 g/dl (14.0-18.0); Mean Corpuscular HGB Conc 33.3 g/dl (31.0-36.0); Mean Corpuscular Hemoglobin 30.4 pg (27.0-33.0); Mean Corpuscular Volume 91.4 fL (80-98); Platelet Count 189 X10*3/uL (160-400); Red Blood Count 4.87 X10*6/uL (4.60-5.80); White Blood Count 6.1 X10*3/uL (4.8-10.8)
[2020-07-03 15:14] LABS: Alanine Aminotransferase 80 U/L (0-40); Albumin Level 4.7 g/dL (3.5-5.0); Alkaline Phosphatase 86 U/L (39-117); Anion Gap 11 (12-20); Aspartate Amino Transferase 38 U/L (5-37); Bilirubin Direct 0.3 mg/dL (0.0-0.5); Bilirubin Total 0.7 mg/dL (0.0-1.0); Blood Urea Nitrogen 10 mg/dL (9-16); Calcium 9.5 mg/dL (8.4-10.2); Carbon Dioxide 30 mmol/L (22-29); Chloride 105 mmol/L (96-108); Cholesterol 242 mg/dL; Estimated Glomerular Filt Rate > 60; Glucose Random 102 mg/dL (60-115); HDL Cholesterol 52 mg/dL; LDL Cholesterol Calculated 172 mg/dl; Potassium 4.4 mmol/L (3.3-5.1); Sodium 142 mmol/L (135-145); Total Protein 7.8 g/dL (6.5-8.0); Triglycerides 94 mg/dL
[2020-07-03 15:35] LABS: Free T4 (Free Thyroxine) 0.95 ng/dL (0.71-1.85); Thyroid Stimulating Hormone 1.91 uIU/mL (0.32-4.0)
[2020-07-03 15:45] LABS: Valproate < 2.0 mcg/mL (50.0-100.0)
== END 2020-07-03 14:03 | disposition home or self-care (01) ==
LOC: HO.LAB 14:02
PROVIDERS: Visit Provider Clinical Nurse Specialist Psychiatric/Mental Health
DX: Z51.81 Encounter for therapeutic drug level monitoring (principal)
CPT/HCPCS: 36415; 80048; 80061; 80076; 80164; 84439; 84443; 85027

== ENCOUNTER 2020-07-17 11:06 | Outpatient (REF) | payer OTHER, SELFPAY ==
--- NOTE | ~2020-07-17 | XR_ITS ---
EXAMINATION: XR CHEST CLINICAL INFORMATION: Chest pain COMPARISON: 06/17/2020 TECHNIQUE: 2 views of the chest were obtained. FINDINGS: The lungs are well expanded. There is no focal consolidation, edema, or effusion. No pneumothorax. The cardiomediastinal silhouette is within normal limits. No acute osseous abnormality. XR/XR chest 2V IMPRESSION: Clear lungs.
== END 2020-07-17 11:07 | disposition home or self-care (01) ==
LOC: HO.XRAY 11:06
PROVIDERS: PCP Family Medicine; Visit Provider Family Medicine
DX: R07.89 Other chest pain (principal)
CPT/HCPCS: 71046

== ENCOUNTER 2021-02-28 13:03 | Outpatient (RCR) | payer OTHER, SELFPAY | END 2021-03-16 09:26 | disposition home or self-care (01) | LOC: HO.PT 13:03 | PROVIDERS: PCP Nurse Practitioner Primary Care; Visit Provider Registered Nurse Community Health | DX: M25.512 Pain in left shoulder (principal) | CPT/HCPCS: 97161 ==

== ENCOUNTER 2021-06-22 12:59 | Outpatient (REF) | payer OTHER, SELFPAY ==
--- NOTE | ~2021-06-22 | XR_ITS ---
EXAMINATION: XR ABDOMEN KUB CLINICAL INDICATION: Epigastric and left upper quadrant pain for about 2 months. COMPARISON: CT abdomen/pelvis dated from 02/26/2020. TECHNIQUE: AP view of the abdomen. FINDINGS: The bowel gas pattern is normal with no evidence of ileus or obstruction. No unusual soft tissue calcifications are noted. The bones are unremarkable. XR/XR KUB IMPRESSION: Nonobstructive bowel gas pattern. If pain persist, correlation with a different imaging modalities such as CT should be obtained if indicated.
== END 2021-06-22 13:00 | disposition home or self-care (01) ==
LOC: HO.XRAY 12:59
PROVIDERS: PCP Nurse Practitioner Primary Care; Visit Provider Registered Nurse
DX: R10.12 Left upper quadrant pain (principal)
CPT/HCPCS: 74018

== ENCOUNTER 2022-12-03 15:47 | Outpatient (REF) | payer OTHER, SELFPAY ==
[2022-12-03 18:03] LABS: MANUAL DIFF FLAG NO
[2022-12-03 18:25] LABS: Basophils Percent Auto 0.5 % (0-2); Eosinophils Absolute Auto 0.1 X10*3/uL (0.0-0.4); Eosinophils Percent Auto 0.9 % (0-4); Hematocrit 44.4 % (42.0-52.0); Hemoglobin 14.8 g/dl (14.0-18.0); Imm Gran Abs Auto 0.01 X10*3/uL (0.00-0.03); Imm Gran Pct Auto 0.2 % (0.0-0.4); Lymphocytes Absolute Auto 2.4 X10*3/uL (1.2-4.9); Lymphocytes Percent Auto 42.2 % (20-40); Mean Corpuscular HGB Conc 33.3 g/dl (31.0-36.0); Mean Corpuscular Hemoglobin 30.1 pg (27.0-33.0); Mean Corpuscular Volume 90.2 fL (80.0-98.0); Mean Platelet Volume 13.2 fL (9.4-12.4); Monocytes Absolute Auto 0.5 X10*3/uL (0.1-1.2); Neutrophils Absolute Auto 2.7 x10*3/uL (2.0-8.3); Neutrophils Percent Auto 47.2 % (45-73); Platelet Count 189 X10*3/uL (160-400); Red Blood Count 4.92 X10*6/uL (4.60-5.80); White Blood Count 5.8 X10*3/uL (4.8-10.8)
[2022-12-03 19:03] LABS: Estimated Average Glucose 103 mg/dL; Hemoglobin A1c % 5.2 %
[2022-12-03 20:27] LABS: Alanine Aminotransferase 55 U/L (0-40); Albumin Level 4.5 g/dL (3.5-5.0); Alkaline Phosphatase 102 U/L (39-117); Anion Gap 12 (12-20); Aspartate Amino Transferase 33 U/L (5-37); Bilirubin Total 0.6 mg/dL (0.0-1.0); Blood Urea Nitrogen 13 mg/dL (9-16); Calcium 9.5 mg/dL (8.4-10.2); Carbon Dioxide 28 mmol/L (22-29); Chloride 105 mmol/L (96-108); Cholesterol 229 mg/dL; Estimated Glomerular Filt Rate > 60; Glucose Random 96 mg/dL (60-115); HDL Cholesterol 50 mg/dL; Iron 138 mcg/dL (45-160); LDL Cholesterol Calculated 158 mg/dl; Percent Iron Saturation 37 % (15-50); Potassium 3.9 mmol/L (3.3-5.1); Sodium 141 mmol/L (135-145); Total Iron Binding Capacity 370 mcg/dL (228-428); Total Protein 7.6 g/dL (6.5-8.0); Triglycerides 106 mg/dL; Unsaturated Iron Binding 232 ug/dL
[2022-12-03 20:40] LABS: Ferritin 81 ng/mL (20-250)
== END 2022-12-03 15:48 | disposition home or self-care (01) ==
LOC: HO.HHCL 15:47
PROVIDERS: Visit Provider Registered Nurse
DX: Z00.01 Encounter for general adult medical examination with abnormal findings (principal); R74.8 Abnormal levels of other serum enzymes; E78.2 Mixed hyperlipidemia; K76.0 Fatty (change of) liver, not elsewhere classified; R73.03 Prediabetes
CPT/HCPCS: 36415; 80053; 80061; 82728; 83036; 83540; 85025

== ENCOUNTER 2022-12-05 12:43 | Outpatient (REF) | payer OTHER, SELFPAY | END 2022-12-05 12:44 | disposition home or self-care (01) | LOC: HO.HHCL 12:43 | PROVIDERS: Visit Provider Registered Nurse | DX: A04.8 Other specified bacterial intestinal infections (principal) | CPT/HCPCS: 87338 ==

== ENCOUNTER 2023-07-03 13:00 | Outpatient (AMB) | payer OTHER, SELFPAY ==
--- NOTE | 2023-07-03 13:10 | MHC.OFFVIS ---
Intake Vital Signs 07/03/23 13:12 Height 5 ft 4 in Weight 219 lb BMI 37.6 BP 97/48 L Blood Pressure Location Lt brachial Position Sitting Pulse 52 Intake Visit Reasons: Colonoscopy Screening & LUQ pain Intake Note: New consult for 1st pre colonoscopy screening. Patient denies any GI issues. 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 He is referred by Tammy Reynoso of [facility]. PMX Hypertension High cholesterol Bipolar disorder Diarrhea History of H pylori infection Liver steatosis * SURGICAL HISTORY Appendectomy * ALLERGIES: NKDA * Acision LABS:needs refresh from 11/2022 KUB FINDINGS: The bowel gas pattern is normal with no evidence of ileus or obstruction. No unusual soft tissue calcifications are noted. The bones are unremarkable. XR/XR KUB IMPRESSION: Nonobstructive bowel gas pattern. If pain persist, correlation with a different imaging modalities such as CT should be obtained if indicated. TODAY'S VISIT PCP record states he was seen by our service in 2019 but I can find no record of that actually happening so I think he is confused about the location his past GI provider. Thought presentation the patient says that he does not want a colonoscopy and request to have a Cologuard screening instead. We will order the Cologuard and have him come back in 8 weeks to go over the results. [facility] Medical History (Updated 07/03/23 @ 13:27 by JULIO CESAR Whitley) History of Helicobacter pylori infection Essential hypertension No known health problems Surgical History History of appendectomy Social History Alcohol intake: current Alcohol intake frequency: holidays/special occasions only Review of Systems Const Denies fatigue, Denies fever(s), Denies night sweats, Denies poor appetite and Denies weight loss ENT Reports Normal hearing present, Denies dental pain, Denies dysphagia, Denies hearing loss, Denies mouth pain, Denies odynophagia, Denies throat swelling, Denies tongue swelling and Reports other (Dentition adequate) Card Reports no additional complaints Resp Reports no additional complaints GI Details: Denies abdominal pain, Denies melena, Denies bloating, Denies hematochezia, Denies constipation, Denies GI cramping, Denies dysphagia, Denies excessive flatus, Denies early satiety, Denies heartburn, Denies diarrhea, Denies nausea, Denies odynophagia, Denies vomiting and Denies hematemesis Skin/Breast Denies pruritus, Denies lesions, Denies rash and Denies jaundice Neuro Reports Normal hearing present and Denies Abnormal speech present Endo Denies fatigue Aller/Immun Denies throat swelling and Denies tongue swelling Physical Exam Vital Signs: Last Vital Signs Pulse 52 07/03/23 13:12 BP 97/48 L 07/03/23 13:12 BMI result Body Mass Index 37.6 Const General: cooperative, no acute distress, well developed and well groomed Nutritional Appearance: well nourished and obese Orientation/consciousness: oriented to person, oriented to place and oriented to time Limitations: No language barrier HEENT Head: Yes normocephalic and Yes atraumatic Eyes General: appearance normal, both eyes and all related structures Pupils: Equal, round and reactive pupils present Neck Neck: Yes normal visual inspection and Yes no lymphadenopathy Thyroid: Thyroid normal Resp Effort & Inspection: normal respiratory effort and able to speak in complete sentences Auscultation: clear to auscultation bilaterally Cardio Rate: regular rate Rhythm: regular rhythm Heart sounds: Normal, physiologic split S2 sound present Peripheral pulses: radial pulses present and posterior tibial pulses present GI Inspection: No distended, No Abdominal panniculus present and Yes obesity Palpation (GI): Soft to palpation, nontender, no guarding, not rigid and No hepatosplenomegaly present Percussion: Yes normal to percussion Auscultation: normal bowel sounds Rectal Exam - Male: Yes deferred Skin General skin exam: no rashes or lesions noted, turgor normal, skin not dry, no jaundice, No spider nevi and no striae Rashes: no rashes Nails: normal Neuro General: oriented to person, oriented to place and oriented to time Cranial nerves: Yes Equal, round and reactive pupils present and Yes Normal hearing present Speech: No Abnormal speech present Extrem General: Yes normal to inspection, No clubbing, No cyanosis and No edema Psych Appearance: grossly normal and well kempt Mental Status: mental status grossly normal Speech and movement: Normal speech and movement present Affect: normal affect Attitude: cooperative Thought process: Normal thought process present and not confabulating Thought content: Normal thought content present Insight: Limited insight present (Psych) Judgement: Limited judgement present (Psych) Assessment & Plan Assessment & Plan (1) Diarrhea: Code(s): R19.7 - Diarrhea, unspecified (2) Pre-op examination: Code(s): Z01.818 - Encounter for other preprocedural examination Plan PCP record states he was seen by our service in 2019 but I can find no record of that actually happening so I think he is confused about the location his past GI provider. Thought presentation the patient says that he does not want a colonoscopy and request to have a Cologuard screening instead. We will order the Cologuard and have him come back in 8 weeks to go over the results. Orders: Orders Complete Blood Count Auto Diff 07/03/23 R19.7 - Diarrhea, unspecified, Z01.818 - Encounter for other preprocedural examination Comprehensive Met. Panel 07/03/23 R19.7 - Diarrhea, unspecified, Z01.818 - Encounter for other preprocedural examination Coding Level of Care Code New Pt Level 3 (39622) Diagnoses Diarrhea R19.7 Pre-op examination Z01.818
[2023-07-03 13:12] VITALS: BP 97/48; PULSE 52; BMI 37.6
== END 2023-07-03 14:31 | disposition home or self-care (01) ==
PROVIDERS: PCP Nurse Practitioner Primary Care; Referring Provider Nurse Practitioner Primary Care; Visit Provider Nurse Practitioner
DX: R19.7 Diarrhea, unspecified (principal); Z01.818 Encounter for other preprocedural examination
CPT/HCPCS: 99203

== ENCOUNTER → 2023-07-03 13:00 | Outpatient (BNVA) | payer OTHER, SELFPAY | PROVIDERS: PCP Nurse Practitioner Primary Care; Referring Provider Nurse Practitioner Primary Care; Visit Provider Nurse Practitioner | DX: Z01.818 Encounter for other preprocedural examination (principal); R19.7 Diarrhea, unspecified | CPT/HCPCS: 99202 ==

== ENCOUNTER 2023-08-28 13:06 | Outpatient (REF) | payer OTHER, SELFPAY ==
[2023-08-28 17:56] LABS: Appearance Urine Clear; Color Urine Yellow; Glucose Urine UA Negative (Negative); Leukocyte Esterase Urine Negative (Negative); Nitrite Urine Negative (Negative); PH 6.5 (5.0-9.0); Urine Blood Negative (Negative); Urine Ketones Negative (Negative); Urine Protein Negative (Neg-Trace)
[2023-09-02 23:24] LABS: PSA, Ultra Sensitive 0.35 ng/mL
== END 2023-08-28 13:07 | disposition home or self-care (01) ==
LOC: HO.LAB 13:06
PROVIDERS: PCP Student in an Organized Health Care Education/Training Program; Visit Provider Nurse Practitioner
DX: Z12.5 Encounter for screening for malignant neoplasm of prostate (principal); R35.89 Other polyuria
CPT/HCPCS: 36415; 81003; 84153; 99212

== ENCOUNTER 2023-08-28 13:06 | Outpatient (AMB) | payer OTHER, SELFPAY ==
--- NOTE | 2023-08-28 13:31 | MHC.OFFVIS ---
Vital Signs 08/28/23 13:50 Height 5 ft 4 in Weight 216 lb 14.958 oz BMI 37.2 BP 100/68 Blood Pressure Location Lt brachial Position Sitting Pulse 58 Intake Visit Reasons: 8 week follow up Intake Note: Patient here for 8wk f/u cologuard test. Patient c/o: on and off stomach pain. Denies nausea, diarrhea, constipation. Taking omeprazole. 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 Thought presentation the patient says that he does not want a colonoscopy and request to have a Cologuard screening instead. We will order the Cologuard and have him come back in 8 weeks to go over the results. Orders: Orders Complete Blood Count Auto Diff 07/03/23 R19.7 - Diarrhea, unspecified, Z01.818 - Encounter for other preprocedural examination Comprehensive Met. Panel 07/03/23 R19.7 - Diarrhea, unspecified, Z01.818 - Encounter for other preprocedural examination TODAY'S VISIT His Cologuard test was negative He is having trouble with polyuria. This is so bad it causes him not to be able to travel to [place] which is something he wants to do. He already has an appointment in September [place]rology[place] [facility] [place] so I encouraged him to keep this. In the meantime I will get a urinalysis and a prostate specific antigen screening as this will help him be a little bit more ahead when he sees the specialist. Return office visit plizzeth [facility] Medical History (Updated 08/28/23 @ 16:34 by JULIO CESAR Whitley) History of Helicobacter pylori infection Essential hypertension No known health problems Surgical History History of appendectomy Social History Alcohol intake: current Alcohol intake frequency: holidays/special occasions only Review of Systems Const Denies fatigue, Denies fever(s), Denies night sweats, Denies poor appetite and Denies weight loss ENT Reports Normal hearing present, Denies dental pain, Denies dysphagia, Denies hearing loss, Denies mouth pain, Denies odynophagia, Denies throat swelling, Denies tongue swelling and Reports other (Dentition adequate) Card Reports no additional complaints Resp Reports no additional complaints GI Details: Denies abdominal pain, Denies melena, Denies bloating, Denies hematochezia, Denies constipation, Denies GI cramping, Denies dysphagia, Denies excessive flatus, Denies early satiety, Denies heartburn, Denies diarrhea, Denies nausea, Denies odynophagia, Denies vomiting and Denies hematemesis Reports urinary frequency Skin/Breast Denies pruritus, Denies lesions, Denies rash and Denies jaundice Neuro Reports Normal hearing present and Denies Abnormal speech present Endo Denies fatigue Aller/Immun Denies throat swelling and Denies tongue swelling Physical Exam Vital Signs: Last Vital Signs Pulse 58 08/28/23 13:50 BP 100/68 08/28/23 13:50 BMI result Body Mass Index 37.2 Const General: cooperative, no acute distress, well developed and well groomed Nutritional Appearance: well nourished and obese Orientation/consciousness: oriented to person, oriented to place and oriented to time Limitations: No language barrier HEENT Head: Yes normocephalic and Yes atraumatic Eyes General: appearance normal, both eyes and all related structures Pupils: Equal, round and reactive pupils present Neck Neck: Yes normal visual inspection and Yes no lymphadenopathy Thyroid: Thyroid normal Resp Effort & Inspection: normal respiratory effort and able to speak in complete sentences Auscultation: clear to auscultation bilaterally Cardio Rate: regular rate Rhythm: regular rhythm Heart sounds: Normal, physiologic split S2 sound present Peripheral pulses: radial pulses present and posterior tibial pulses present GI Inspection: No distended, No Abdominal panniculus present and Yes obesity Palpation (GI): Soft to palpation, nontender, no guarding, not rigid and No hepatosplenomegaly present Percussion: Yes normal to percussion Auscultation: normal bowel sounds Rectal Exam - Male: Yes deferred Skin General skin exam: no rashes or lesions noted, turgor normal, skin not dry, no jaundice, No spider nevi and no striae Rashes: no rashes Nails: normal Neuro General: oriented to person, oriented to place and oriented to time Cranial nerves: Yes Equal, round and reactive pupils present and Yes Normal hearing present Speech: No Abnormal speech present Extrem General: Yes normal to inspection, No clubbing, No cyanosis and No edema Psych Appearance: grossly normal and well kempt Mental Status: mental status grossly normal Speech and movement: Normal speech and movement present Affect: normal affect Attitude: cooperative Thought process: Normal thought process present and not confabulating Thought content: Normal thought content present Insight: Limited insight present (Psych) Judgement: Limited judgement present (Psych) Assessment & Plan Assessment & Plan (1) Polyuria: Code(s): R3. - Other polyuria Category: Medical (2) Colon cancer screening: Comment: 08/2023= negative Cologuard Code(s): Z12.11 - Encounter for screening for malignant neoplasm of colon Category: Medical Plan His Cologuard test was negative He is having trouble with polyuria. This is so bad it causes him not to be able to travel to [place] which is something he wants to do. He already has an appointment in September with Urology, C[place] Pickett [place] [facility] [place] so I encouraged him to keep this. In the meantime I will get a urinalysis and a prostate specific antigen screening as this will help him be a little bit more ahead when he sees the specialist. Return office visit p.r.n. Orders: Orders UA CC w/rflx Micro + Cult Today R3 - Other polyuria PSA, Ultra Sensitive Today R3 - Other polyuria Referrals Urogynecology Referral R3 - Other polyuria
[2023-08-28 13:50] VITALS: BP 100/68; PULSE 58; BMI 37.2
== END 2023-08-28 14:14 | disposition home or self-care (01) ==
PROVIDERS: PCP Student in an Organized Health Care Education/Training Program; Visit Provider Nurse Practitioner
DX: R35.89 Other polyuria (principal); Z12.11 Encounter for screening for malignant neoplasm of colon
CPT/HCPCS: 99213

== ENCOUNTER 2023-10-08 12:20 | Outpatient (AMB) | payer OTHER, SELFPAY ==
--- NOTE | 2023-10-08 13:04 | MHC.OFFVIS ---
Intake Visit Reasons: circumcision consult Intake Note: New Patient presents today for initial visit to establish treatment for : Circumcision Consult Urology Medications: None Allergies to Antibiotic: None Blood Thinner: None [employer] Sergeant Required: No Full Stack Software Developer: Full Stack Software Developer offered & declined Accompanied by: Self / Same As Patient Allergies No Known Allergies Allergy (Verified 10/08/23 13:34) Medication List - Last Reconciled 10/08/23 by OSORIO Lares cholecalciferol (vitamin D3) 50 mcg PO DAILY dicyclomine 20 mg PO BID 14 days divalproex ER 1,000 mg PO QAM fenofibrate micronized 67 mg PO DAILY fluoxetine 20 mg PO DAILY lisinopril 10 mg PO DAILY mirtazapine 15 mg PO BEDTIME PRN mirtazapine 7.5 mg PO BEDTIME omeprazole 20 mg PO DAILY rosuvastatin 10 mg PO BEDTIME HPI Comments Details: Korey is a very pleasant 48-year-old male patient of Dr. Madhav Toledo. He has a past medical history of H pylori and hypertension. He presents to the office today as a new patient for balanitis and frenulum breve. In discussion with the patient today he reports having followed up with his PCP in discussing ongoing issues he has been experiencing when having erections. When asked he is able to obtain and maintain erections. In assessment of the patient today the penis is uncircumcised. There is mild irritation to the head of the penis otherwise no open areas, lesions, and or foul order noted. The foreskin is easily retractable no phimosis noted. Patient reporting pain during erection at frenulum site. He otherwise denies any bothersome urinary issues or concerns. Unable to obtain urine for urinalysis as patient unable to void. Discussed potential treatment options for balanitis as well as frenulectomy. He denies urinary urgency, urinary frequency, incontinence, nocturia, hematuria, dysuria, foul smelling urine, changes to urinary stream, flank pain, fever, and or chills. He is happy with his current voiding parameters. [facility] Medical History History of Helicobacter pylori infection Essential hypertension No known health problems Surgical History History of appendectomy Social History Alcohol intake: current Alcohol intake frequency: holidays/special occasions only Review of Systems Const All systems reviewed & are unremarkable except as noted in HPI and below Physical Exam Const General: cooperative, healthy appearing, comfortable, no acute distress, well developed, alert and awake Nutritional Appearance: overweight Orientation/consciousness: patient oriented x3 Limitations: no limitations HEENT Head: Yes normal to inspection, Yes normocephalic and Yes atraumatic Ears: hearing grossly normal bilaterally Eyes General: appearance normal, both eyes and all related structures Neck Neck: Yes normal visual inspection and Yes trachea midline Chest Chest palpation & inspection: normal inspection of the chest Resp Effort & Inspection: normal respiratory effort and able to speak in complete sentences Cardio Rate: regular rate GI Inspection: Yes normal to inspection General: Yes no CVA tenderness Male General Exam: Yes normal external exam Penis: normal penis and uncircumcised Meatus: meatus normal and Erythema at meatus Scrotum: scrotum normal Testes: Testes normal Back/Spine/Pelvis Back: no CVA tenderness Skin General skin exam: no rashes or lesions noted Neuro General: patient oriented x3 Extrem General: Yes normal to inspection Psych Appearance: grossly normal and well kempt Mental Status: mental status grossly normal Speech and movement: Normal speech and movement present and Clear speech present Affect: normal affect Attitude: cooperative Thought process: Normal thought process present Thought content: Normal thought content present Assessment & Plan Assessment & Plan (1) Persistent frenulum of penis: Code(s): Q55.69 - Other congenital malformation of penis Category: Medical (2) Balanitis: Code(s): N48.1 - Balanitis Category: Medical Plan Start clotrimazole-betamethasone 1-0.05 % as discussed and prescribed. Discussed proper care of area. Discussed risks and benefits of circumcision and or frenulectomy. Patient otherwise denies any bothersome urinary issues or concerns. He reports be happy with current voiding parameters. Follow-up with Dr. Hansen in 1-2 months for further assessment evaluation; or sooner with any issues, concerns, and or questions. Medications: New clotrimazole-betamethasone 1-0.05 % Apply thin coat 2 times per day 1 appl topical BID 4 weeks 45 grams 0RF N48.1 - Balanitis Patient Instructions: The patient had an opportunity to ask questions regarding the treatment plan. All questions were answered. Physical exam, labs, and imaging were discussed and reviewed in detail. As well as risks, benefits, and discussion of treatment choices. No major barriers to understanding were identified. The patient expressed understanding and agreement with the above treatment plan. The patient was made aware they should contact our office by phone for worsening of their current condition, the appearance of new symptoms, or with any questions or concerns. Compliance is encouraged with any medications and follow up testing that is ordered. It is a privilege to be allowed the opportunity to participate in? your urological care.? Again, if you have any questions or concerns If you have any questions or concerns please do not hesitate to contact me. The office is [phone]. This note is constructed using voice recognition software. While every effort has been made to ensure accuracy railway switch operator errors may have been included. Yours sincerely, OSORIO Lares Coding Level of Care Code New Pt Level 4 (55354) Diagnoses Persistent frenulum of penis Q55.69 Balanitis N48.1
== END 2023-10-08 13:31 | disposition home or self-care (01) ==
PROVIDERS: PCP Student in an Organized Health Care Education/Training Program; Visit Provider Nurse Practitioner Family
DX: Q55.69 Other congenital malformation of penis (principal); N48.1 Balanitis
CPT/HCPCS: 99204

== ENCOUNTER → 2023-10-08 12:20 | Outpatient (BNVA) | payer OTHER, SELFPAY | PROVIDERS: PCP Student in an Organized Health Care Education/Training Program; Visit Provider Nurse Practitioner Family | DX: N48.1 Balanitis (principal); Q55.69 Other congenital malformation of penis | CPT/HCPCS: 99202 ==

== ENCOUNTER 2023-10-23 10:54 | Outpatient (REF) | payer OTHER, SELFPAY ==
[2023-10-23 12:00] LABS: Hematocrit 43.8 % (42.0-52.0); Hemoglobin 14.9 g/dl (14.0-18.0); Mean Corpuscular Hemoglobin 30.5 pg (27.0-33.0); Mean Corpuscular Volume 89.8 fL (80.0-98.0); Mean Platelet Volume 12.5 fL (9.4-12.4); Platelet Count 167 X10*3/uL (160-400); Red Blood Count 4.88 X10*6/uL (4.60-5.80); Red Cell Distribution Width 13.2 % (11.0-16.0); White Blood Count 5.9 X10*3/uL (4.8-10.8)
[2023-10-23 12:31] LABS: Alanine Aminotransferase 32 U/L (0-40); Albumin Level 4.5 g/dL (3.5-5.0); Alkaline Phosphatase 94 U/L (39-117); Anion Gap 12 (12-20); Aspartate Amino Transferase 24 U/L (5-37); Bilirubin Total 0.5 mg/dL (0.0-1.0); Blood Urea Nitrogen 14 mg/dL (9-16); Calcium 9.3 mg/dL (8.4-10.2); Carbon Dioxide 27 mmol/L (22-29); Chloride 104 mmol/L (96-108); Cholesterol 165 mg/dL (<200); Estimated Glomerular Filt Rate > 60; Glucose Random 106 mg/dL (60-115); HDL Cholesterol 49 mg/dL (>40); LDL Cholesterol Calculated 102 mg/dL (<100); Potassium 4.4 mmol/L (3.3-5.1); Sodium 139 mmol/L (135-145); Total Protein 7.6 g/dL (6.5-8.0); Triglycerides 72 mg/dL (<150)
[2023-10-23 12:33] LABS: HBsAGNum1 0.27 S/CO (0.00-0.99); HIV AB/AG Nonreactive (Nonreactive); HIV Num 1 0.06 S/CO (0.00-0.99); Hepatitis B Core Antibody Nonreactive (Nonreactive); Hepatitis B Surface Antigen Negative (Negative); ~HepC Num1 0.11 S/CO (0.00-0.79); ~Hepatitis B Surface Antibody REACTIVE (Nonreactive); ~Hepatitis C Antibody Nonreactive (Nonreactive)
[2023-10-23 12:46] LABS: Syphilis Screen Nonreactive (Nonreactive)
[2023-10-23 12:51] LABS: TSH reflex Free T4 1.24 uIU/mL (0.32-4.0); Vitamin D 25-OH Total 52.8 ng/mL (>30)
== END 2023-10-23 10:55 | disposition home or self-care (01) ==
LOC: HO.HHCL 10:54
PROVIDERS: Visit Provider Student in an Organized Health Care Education/Training Program
DX: Z00.00 Encounter for general adult medical examination without abnormal findings (principal); Z13.89 Encounter for screening for other disorder
CPT/HCPCS: 36415; 80053; 80061; 82306; 84443; 85027; 86704; 86706; 86780; 86803; 87340; 87389

== ENCOUNTER 2023-11-17 11:58 | Outpatient (REF) | payer OTHER, SELFPAY ==
[2023-11-17 12:17] LABS: MANUAL DIFF FLAG NO
[2023-11-17 12:59] LABS: Basophils Percent Auto 0.5 % (0-2); Eosinophils Absolute Auto 0.1 X10*3/uL (0.0-0.4); Eosinophils Percent Auto 1.9 % (0-4); Hematocrit 44.5 % (42.0-52.0); Imm Gran Abs Auto 0.01 X10*3/uL (0.00-0.03); Imm Gran Pct Auto 0.2 % (0.0-0.4); Lymphocytes Absolute Auto 3.1 X10*3/uL (1.2-4.9); Lymphocytes Percent Auto 53.1 % (20-40); Mean Corpuscular HGB Conc 33.7 g/dl (31.0-36.0); Mean Corpuscular Hemoglobin 30.5 pg (27.0-33.0); Mean Corpuscular Volume 90.4 fL (80.0-98.0); Mean Platelet Volume 12.6 fL (9.4-12.4); Monocytes Absolute Auto 0.7 X10*3/uL (0.1-1.2); Monocytes Percent Auto 11.4 % (2-11); Neutrophils Percent Auto 32.9 % (45-73); Platelet Count 203 X10*3/uL (160-400); Red Blood Count 4.92 X10*6/uL (4.60-5.80); Red Cell Distribution Width 12.9 % (11.0-16.0); White Blood Count 5.9 X10*3/uL (4.8-10.8)
[2023-11-17 13:42] LABS: Alanine Aminotransferase 45 U/L (0-40); Albumin Level 4.7 g/dL (3.5-5.0); Alkaline Phosphatase 97 U/L (39-117); Aspartate Amino Transferase 32 U/L (5-37); Bilirubin Direct 0.1 mg/dL (0.0-0.5); Bilirubin Total 0.4 mg/dL (0.0-1.0); Total Protein 7.7 g/dL (6.5-8.0)
[2023-11-17 13:50] LABS: Valproate < 12.5 mcg/mL (50.0-100.0)
== END 2023-11-17 11:59 | disposition home or self-care (01) ==
LOC: HO.LAB 11:58
PROVIDERS: PCP Student in an Organized Health Care Education/Training Program; Visit Provider Clinical Nurse Specialist Psychiatric/Mental Health
DX: Z79.899 Other long term (current) drug therapy (principal)
CPT/HCPCS: 36415; 80076; 80164; 85025

== ENCOUNTER 2023-12-03 17:04 | Emergency (ER) | payer OTHER, SELFPAY ==
[2023-12-03 17:10] VITALS: BP 116/74; PULSE 69; RESP 16; TEMP 36.8; O2SAT 96; BMI 38.1
--- NOTE | 2023-12-03 17:10 | ED_ITS ---
HPI - General Adult General Chief complaint: General Medical Stated complaint: back pain, feels sideways Source: patient Mode of arrival: ambulatory Limitations: no limitations History of Present Illness ED Provider: shreya SANTIAGO narrative: Patient is a 48-year-old male with history of bipolar disorder, HTN, GERD presenting to the ED with complaint of left shoulder/neck pain since waking this morning. Denies fall or other injury. States he is having difficulty standing up straight due to pain/spasming. Denies weakness, numbness, tingling. MD complaint: left shoulder pain Onset (ago): hour(s) Severity: moderate Quality: aching Pain Consistency: constant Associated symptoms: denies other symptoms Treatments prior to arrival: NSAID Related Data Home Medications ?Medication ?Instructions ?Recorded ?Confirmed cholecalciferol (vitamin D3) 50 50 mcg PO DAILY 06/22/20 06/22/20 mcg (2,000 unit) capsule divalproex 500 mg tablet,extended 1,000 mg PO QAM 06/22/20 06/22/20 release 24 hr fenofibrate micronized 67 mg 67 mg PO DAILY 06/22/20 06/22/20 capsule fluoxetine 20 mg capsule 20 mg PO DAILY 06/22/20 06/22/20 lisinopril 10 mg tablet 10 mg PO DAILY 06/22/20 06/22/20 mirtazapine 15 mg tablet 15 mg PO BEDTIME PRN insomnia 06/22/20 06/22/20 omeprazole 20 mg capsule,delayed 20 mg PO DAILY 06/22/20 06/22/20 release mirtazapine 7.5 mg tablet 7.5 mg PO BEDTIME 10/08/23 rosuvastatin 10 mg tablet 10 mg PO BEDTIME 10/08/23 Previous Rx's ?Medication ?Instructions ?Recorded dicyclomine 20 mg tablet 20 mg PO BID 14 days #28 tabs 02/26/20 clotrimazole-betamethasone 1 1 appl topical BID 4 weeks #45 10/08/23 %-0.05 % topical cream grams cyclobenzaprine 5 mg tablet 5 mg PO TID PRN muscle spasm #10 12/03/23 tabs lidocaine 5 % topical patch 1 patch topical DAILY #15 ea 12/03/23 Allergies Allergy/AdvReac Type Severity Reaction Status Date / Time No Known Allergies Allergy Verified 12/03/23 17:12 Review of Systems Review of Systems: As per HPI. Yes all other systems are reviewed and are negative Constitutional: Constitutional: Reports as per HPI [facility] Past Medical History Medical History History of Helicobacter pylori infection Essential hypertension No known health problems Surgical History History of appendectomy Social History Social History (System 10/09/23 @ 15:59 by Kelsy Diaz) Alcohol intake: current Alcohol intake frequency: holidays/special occasions only Physical Exam ED Vital Signs: Vital signs have been reviewed and appear to be correct. Blood pressure normal. Heart rate normal. Respiratory rate normal. Temperature normal. Oxygen saturation normal. Const General: cooperative, healthy appearing and no acute distress Orientation/consciousness: oriented to person, oriented to place, oriented to time and patient oriented x3 Limitations: no limitations HENMT Head: Yes normocephalic and Yes atraumatic Ears: external ears normal General nose exam: Normal external nose present Face and sinus: Yes face symmetric Mouth: oropharynx normal and moist mucous membranes Throat: Yes uvula midline Eyes Pupils: Equal, round and reactive pupils present Neck Neck: Yes normal visual inspection and Yes supple Resp Effort & Inspection: normal respiratory effort and able to speak in complete sentences Auscultation: clear to auscultation bilaterally Cardio Rate: regular rate Rhythm: regular rhythm Heart sounds: S1 normal heart sound present and S2 normal heart sound present GI Palpation (GI): Soft to palpation and nontender Auscultation: normoactive bowel sounds General: Yes no CVA tenderness Back/Spine/Pelvis Back: no CVA tenderness Cervical Spine: normal cervical lordosis, cervical muscular tenderness (left lateral), cervical spasm (left), No Cervical spine tenderness and No step off deformity Skin General skin exam: elasticity normal and turgor normal Neuro General: oriented to person, oriented to place, oriented to time, patient oriented x3, moves all extremities, no focal motor deficits and CN's II-XI intact bilaterally Cranial nerves: Yes Equal, round and reactive pupils present Cognition (Neuro): normal cognition Extrem General: Yes full ROM, Yes no pedal edema and Yes no calf tenderness Left upper extremity: shoulder/upper arm (trapezius spasm) Details: tenderness (trapezius) and abnormal ROM (limited due topain) and hand Details: vascular exam Details: radial pulse present Psych Mental Status: mental status grossly normal Affect: normal affect Thought process: Normal thought process present Medical Decision Making Medical Decision Making MDM Narrative: Patient is a 48-year-old male with history of bipolar disorder, HTN, GERD presenting to the ED with complaint of left shoulder/neck pain since waking this morning. On exam patient is awake, A+Ox3, VS WNL, afebrile, normal neurological exam without focal deficits, physical exam findings as above. Given reported symptoms and physical exam findings, initial differential includes muscle spasm, muscle strain. Do not feel imaging is indicated at this time. Treat with cyclobenzaprine and topical lidocaine patches, advised patient to alternate Tylenol and ibuprofen and perform gentle [id number] exercises. Return precautions discussed. Instructed patient to follow up with PCP. Patient verbalized understanding of and agreement with plan. Differential Diagnosis Differential Diagnoses: The differential diagnosis associated with the presentation includes As per MDM. External Record Review External record reviewed: Inpatient record, Office record and Outpatient record Prescription Management I considered prescription management with: Pain Medication and Other Discharge Plan Discharge Clinical Impression: Muscle spasm of left shoulder Patient Disposition: Home, Self-Care Instructions: Muscle Spasm (ED) Additional Instructions: You were evaluated in the emergency department today for left shoulder pain. This is due to a muscle spasm. You are being prescribed a muscle relaxer, take this as prescribed. We also recommend applying warm compresses for 10-15 minutes at a time several times daily. You should also take 650 mg Tylenol or 600 mg ibuprofen every 6 hours as needed for pain. If necessary, you can alternate these medications every 3 hours. For example, at 9:00 a.m. take Tylenol, then at noon take ibuprofen, then at 3:00 p.m. take Tylenol, then at 6:00 p.m. take ibuprofen, etc.. You are also being prescribed topical lidocaine patches which you can wear for up to 12 hours in a 24 hour period. Do not apply heat directly over the patches. You should perform gentle [id number] exercises as demonstrated to you in the emergency department to loosen up the muscle. Follow-up with your primary care provider this week. Return to the emergency department if you develop increasing pain, new weakness, numbness, tingling or any other concerning symptoms. Prescriptions: New lidocaine 5 % adhesive patch,medicated 1 patch topical DAILY Qty: 15 0RF Rx Instructions: leave on most painful area for up to 12 hrs cyclobenzaprine 5 mg tablet 5 mg PO TID PRN (Reason: muscle spasm) Qty: 10 0RF No Action dicyclomine 20 mg tablet 20 mg PO BID 14 Days Qty: 28 0RF lisinopril 10 mg tablet 10 mg PO DAILY fluoxetine 20 mg capsule 20 mg PO DAILY cholecalciferol (vitamin D3) 50 mcg (2,000 unit) capsule 50 mcg PO DAILY fenofibrate micronized 67 mg capsule 67 mg PO DAILY mirtazapine 15 mg tablet 15 mg PO BEDTIME PRN (Reason: insomnia) divalproex 500 mg tablet extended release 24 hr 1,000 mg PO QAM omeprazole 20 mg capsule,delayed release(DR/EC) 20 mg PO DAILY mirtazapine 7.5 mg tablet 7.5 mg PO BEDTIME rosuvastatin 10 mg tablet 10 mg PO BEDTIME clotrimazole-betamethasone 1-0.05 % cream 1 appl topical BID 28 Days Qty: 45 0RF Rx Instructions: Apply thin coat 2 times per day Interventions: ED Discharge Assessment Last Done: 12/03/23 17:18 Print Language: Mohawk
[2023-12-03 17:18] VITALS: BP 116/74; PULSE 69; RESP 16; TEMP 36.8; O2SAT 96
--- OUTSIDE RECORDS SUMMARY | 2023-12-03 17:20 | XMS_ITS | Patient Health Record ---
Author Organization [facility] Address [address] [place] [address] Care Team Providers Care Bag Inspector Name Role Phone Rico Pedroza Primary Care Provider Flynn Brooks [phone] REASON FOR REFERRAL No Information MEDICATIONS Medication SIG (Take, Route, Frequency, Duration) Notes Start Date End Date Status Vitamin D3 50 MCG (1999 UT) Orally Once a day Active Dicyclomine HCl 10 MG 1-2 Orally Q 6 daisy rs prn abdominal cramps/discomfort for 90 Active FLUoxetine HCl 20 MG TAKE 1 CAPSULE BY M OUTH EVERY DAY Oral for 30 Active Calamine - as directed Externally Active Mirtazapine 15 MG TAKE 1 TABLET BY TINY TH EVERY DAY AT BEDTIME NEEDED FOR SLEEP Oral for 30 Active Fenofibrate 67 MG 1 capsule with a angeline l Orally Once a day Active IMMUNIZATIONS Vaccine Route Administration Date Status Comme nts Influenza Unknown 01/11/2020 Administered SOCIAL HISTORY Tobacco Use: Social History Observation Description Date Details (start date - stop date) Never Smoker NA - NA Sex Assigned At : Social History Observation Description Sex Assigned At Unknown Tobacco Use/Smoking Question Answer Notes Patient is a nonsmoker Alcohol Screen Question Answer Notes Did you have a drink containing alcohol in the p ast year? No Points 0 Interpretation Negative PROBLEMS Problem Type ICD Code Onset Dates Problem Status W/U Status Risk SNOMED Code Notes Problem Irritable bowel syndrome (K58.9) Active confirmed Irritable bowel syndrome (53488015) Problem Left lower quadrant abdominal pain (R10.32) Active confirmed Left lower quadrant pain (287952725) Problem Elevated liver function tests (R79.89) Active confirmed Elevated liver enzymes level (758659787) PLAN OF TREATMENT Pending Test Test Name Order Date LIVER PROFILE 07/04/2021 LIVER PROFILE 03/28/2020 IRON + IBC (FE) 03/28/2020 FERRITIN 03/28/2020 CBC w DIFF 07/04/2021 HEPATITIS B, C PROFILE 03/28/2020 CERULOPLASMIN 03/28/2020 Prothrombin Time INR 07/04/2021 Insurance Providers Payer Name Payer Address Payer Phone Subscriber Number Group Number Insured Name Patient Relationship to Insured Coverage Start Date Coverage End Date [facility] [address] [place] [address] [id number] JEREMY NATARAJAN Self - patient is the insured MEDICAL (GENERAL) HISTORY Medical History History ICD Code Denies [place],DM,CVA,Lung disease,renal dise ase Hypertension Anxiety/Depression Hyperlipidemia Fatty liver Surgical History Surgery Date(Month/Year) Appendectomy
== END 2023-12-03 17:21 | disposition home or self-care (01) ==
PROVIDERS: Emergency Provider Emergency Medicine; PCP Student in an Organized Health Care Education/Training Program
DX: M62.838 Other muscle spasm (principal); M25.512 Pain in left shoulder
CPT/HCPCS: 99282; 99283

== ENCOUNTER 2024-03-17 11:39 | Outpatient (REF) | payer OTHER, SELFPAY ==
[2024-03-17 13:38] LABS: Anion Gap 9 (12-20); Blood Urea Nitrogen 12 mg/dL (9-16); Calcium 9.4 mg/dL (8.4-10.2); Carbon Dioxide 25 mmol/L (22-29); Chloride 108 mmol/L (96-108); Estimated Glomerular Filt Rate > 60; Glucose Random 94 mg/dL (60-115); Potassium 3.8 mmol/L (3.3-5.1); Sodium 138 mmol/L (135-145)
== END 2024-03-17 11:40 | disposition home or self-care (01) ==
LOC: HO.HHCL 11:39
PROVIDERS: Visit Provider Nurse Practitioner
DX: R35.0 Frequency of micturition (principal); Z12.5 Encounter for screening for malignant neoplasm of prostate
CPT/HCPCS: 36415; 80048; 84153; 87086; 87088; 87186

== ENCOUNTER 2024-06-21 12:36 | Outpatient (REF) | payer OTHER, SELFPAY ==
[2024-06-21 13:01] LABS: MANUAL DIFF FLAG NO
--- OUTSIDE RECORDS SUMMARY | 2024-06-21 13:36 | XMS_ITS | Encounter Summary ---
Author Organization [employer] Address [address] [facility] [address] [place] [address] Care Team Providers Care Receiving And Processing Supervisor Name Role Phone Lyla Rodrigez MD Primary Care Pro vider Reason for Visit * Reason Onset Date Comments appt broken tooth 08/11/2023 Encounter Details Date Type Department Care Team (Late st Contact Info) Description 08/11/2023 Telephone [facility] [address] [place] [address] Cat Deal DDS [address] [place] [address] appt broken tooth Social History Tobacco Use Types Packs/Day Years Used Date Smoking Tobacco: Former Cigarettes Smokeless Tobacco: Never Alcohol Use Standard Drinks/Week Comments Not Currently 0 (1 standard drink = 0.6 oz pur e alcohol) Depression Answer Date Recorded Patient Health Questionnaire-9 Score 0 12/03/2022 Housing Stability Answer Date Recorded What is your housing situation today? I have daisy dior 03/17/[address] you li ve. Do you have problems with any of the following? None of the above 03/17/2023 Food Insecurity Answer Date Recorded Within the past 12 months, y ou worried that your food would run out before you got money to buy more: Never True 03/17/2023 Within the past 12 months,th e food you bought just didn't last and you didn't have enough money to get more: Never True 10/2022 Transportation Answer Date Recorded In the past 12 months, has l ack of transportation kept you from medical appts, meetings, work or from getting things needed for daily living? No 03/17/2023 Utilities Answer Date Recorded In the past 12 months, has t he electric, gas, oil or water company threatened to shut off services in your home? No 03/17/2023 Depression Answer Date Recorded Patient Health Questionnaire-2 Score 0 12/03/2022 Sex and Gender Information Value Date Recorded Sex Assigned at Male 03/11/2022 10:18 AM EDT Legal Sex Male 10:18 AM EDT Gender Identity Male 03/11/2022 10:18 AM EDT Sexual Orientation Choose not to disclose 2021 10:18 AM EDT documented as of this encounter Miscellaneous Notes * Telephone Encounter - Krystal Marr - 08/11/2023 10:00 AM EDT Patient is calling in because although he has an appt on 08/14 for rct, that same tooth broke and he is trying to see if he can be seen today. Informed patient no available room on the schedule. He is not in pain now swelling. Informed patient I would send message to the office for provider verification and he would hear from office of whether he would be seen sooner of if he waiting for 08/14. documented in this encounter Plan of Treatment Upcoming Encounters Date Type Department Care Team (Late st Contact Info) Description 07/13/2024 1:00 PM EST Office Visit [facility] [address] [place] [address] Mechelle Price documented as of this encounter Visit Diagnoses Not on filedocumented in this encounter Additional Health Concerns Assessment Noted Time PHQ-9 Depression Total Score: 0 12/04/19 2:55 PM EDT documented as of this encounter Care Teams Receiving And Processing Supervisor Relationship Specialty Start Date End Date Lyla Rodrigez MD [address] [place] [address] PCP - General Internal Medicine 12/24/22 documented as of this encounter
--- OUTSIDE RECORDS SUMMARY | 2024-06-21 13:36 | XMS_ITS | Encounter Summary ---
Author Organization [employer] Address [address] [facility] [address] [place] [address] Care Team Providers Care Ice Skater Name Role Phone Lyla Rodrigez MD Primary Care Pro vider Reason for Visit * Reason Comments Med Refill Encounter Details Date Type Department Care Team ([facility] st Contact Info) Description 05/13/2024 Refill [facility] [address] [place], [place] [phone] Lyla Rodrigez MD [address] [place] [address] Social History Tobacco Use Types Packs/Day Years Used Date Smoking Tobacco: Former Cigarettes Smokeless Tobacco: Never Comments:Started 15 y of age and stopped around his 30 y of age -smoked for aprox 15 years and stopped 18 y ago, used to smoke aprox 2-3 cig a day Alcohol Use Standard Drinks/Week Comments Never 0 (1 standard drink = 0.6 oz pur e alcohol) Depression Answer Date Recorded Patient Health Questionnaire-9 Score 4 10/07/2023 Patient Health Questionnaire-9 Score 4 10/07/2023 Last PHQ-9: Questionnaire Data Not on file 0 10/07/2023 Housing Stability Answer Date Recorded What is your housing situation today? I have daisy dior 03/17/[address] you li ve. Do you have problems with any of the following? None of the above 03/17/2023 Food Insecurity Answer Date Recorded Within the past 12 months, y ou worried that your food would run out before you got money to buy more: Often true 09/25/2023 Within the past 12 months,th e food you bought just didn't last and you didn't have enough money to get more: Often true Transportation Answer Date Recorded In the past [...] Answer Date Recorded Patient Health Questionnaire-2 Score 2 10/07/2023 Sex and Gender Information Value Date Recorded Sex Assigned at Male 03/11/2022 10:18 AM EDT Legal Sex Male 10:18 AM EDT Gender Identity Male 03/11/2022 10:18 AM EDT Sexual Orientation Choose not to disclose 2021 10:18 AM EDT documented as of this encounter Plan of Treatment Upcoming Encounters Date Type Department Care Team (Late st Contact Info) Description 07/13/2024 1:00 PM EST Office Visit [facility] [address] [place], [place] [phone] Mechelle Price documented as of this encounter Visit Diagnoses Not on filedocumented in this encounter Additional Health Concerns Assessment Noted Time PHQ-9 Depression Total Score: 4 10/07/19 24 10:52 AM EDT documented as of this encounter Care Teams Ice Skater Relationship Specialty Start Date End Date Lyla Rodrigez MD [address] [place] [address] PCP - General Internal Medicine 12/24/22 documented as of this encounter
--- OUTSIDE RECORDS SUMMARY | 2024-06-21 13:36 | XMS_ITS | Encounter Summary ---
Author Organization [employer] Address [address] [facility] [address] [place] [address] Care Team Providers Care Payroll Accounting Manager Name Role Phone Lyla Rodrigez MD Primary Care Pro vider Reason for Visit * Reason Comments Med Change Request Encounter Details Date Type Department Care Team (Late st Contact Info) Description 07/04/2023 Refill [facility] [address] [place], [place] [phone] Camille Harrison FNP [address] [place] [address] Social History Tobacco Use Types Packs/Day Years [...] t he electric, gas, oil or water [employer] threatened to shut off services in your [...] encounter Miscellaneous Notes * Telephone Encounter - Lyla Toledo MD - 07/07/2023 9:27 AM EST Sent new med already documented in this encounter Plan of Treatment Upcoming Encounters Date Type Department Care Team (Late st Contact Info) Description 07/13/2024 1:00 PM EST Office Visit [facility] [address] [place] [address] Mechelle Price documented as of this encounter Visit Diagnoses Not on filedocumented in this encounter Additional Health Concerns Assessment Noted Time PHQ-9 Depression Total Score: 0 12/04/19 23 2:55 PM EDT documented as of this encounter Care Teams Payroll Accounting Manager Relationship Specialty Start Date End Date Lyla Rodrigez MD [address] [place] [address] PCP - General Internal Medicine 12/24/22 documented as of this encounter
--- OUTSIDE RECORDS SUMMARY | 2024-06-21 13:36 | XMS_ITS | Encounter Summary ---
Author Organization [employer] Address [address] 7t [place] [address] Care Team Providers Care Sound Engineer Audio Control Name Role Phone Lyla Rodrigez MD Primary Care Pro vider Encounter Details Date Type Department Care Team (Late st Contact Info) Description 04/29/2024 Orders Only [facility] MEDICINE [address] [place], [place] [phone] Provider, MD Marisela Social History Tobacco Use Types Packs/Day Years [...] Description 07/13/2024 1:00 PM EST Office Visit [facility] ADULT DENTAL [address] [place] [address] Mechelle Price documented as of this encounter Procedures Procedure Name Priority Date/Time Associated Diagnosis Comments HM FIT DNA/COLOGUARD CANCER SCREENING Routine 07/09/2023 12:29 PM EST documented in this encounter Results * FIT DNA/Cologuard Cancer Screening (07/09/2023 12:29 PM EST) Stool Historical Provider HEALTH MAINTENANCE Final Result documented in this encounter Visit Diagnoses Not on filedocumented in this encounter Additional Health Concerns Assessment Noted Time PHQ-9 Depression Total Score: 4 10/07/19 24 10:52 AM EDT documented as of this encounter Care Teams Sound Engineer Audio Control Relationship Specialty Start Date End Date Lyla Rodrigez MD [address] [place] [address] PCP - General Internal Medicine 12/24/22 documented as of this encounter
--- OUTSIDE RECORDS SUMMARY | 2024-06-21 13:36 | XMS_ITS | Encounter Summary ---
Author Organization [employer] [facility] Address [address] [place] [address] 7t [place] [address] Care Team Providers Care Press Operator Carbon Products Name Role Phone Tammy Reynoso Primary Care Provider [phone]- [phone] Lyla Rodrigez MD Primary Care Pro vider Encounter Details Date Type Department Care Team (Late st Contact Info) Description 09/23/2022 Orders Only [facility] CHC MED & PEDS [address] [place], [place] [phone] Jenise Reyes LPN Social History Tobacco Use Types Packs/Day Years Used Date Smoking Tobacco: Never Assessed Sex and Gender Information Value Date Recorded Sex Assigned at Male 03/11/2022 10:18 AM EDT Legal Sex Male 10:18 AM EDT Gender Identity Male 03/11/2022 10:18 AM EDT Sexual Orientation Choose not to disclose 2021 10:18 AM EDT documented as of this encounter Plan of Treatment Upcoming Encounters Date Type Department Care Team (Late Contact Info) Description 07/13/2024 1:00 PM EST Office Visit [facility] ADULT DENTAL [address] [place] [address] Mechelle Price documented as of this encounter Visit Diagnoses Not on filedocumented in this encounter Care Teams Press Operator Carbon Products Relationship Specialty Start Date End Date Tammy Reynoso FNP PCP - General Family Medicine 03/02/21 12/23/22 Lyla Rodrigez MD [address] [place] [address] PCP - General Internal Medicine 12/24/22 documented as of this encounter
--- OUTSIDE RECORDS SUMMARY | 2024-06-21 13:36 | XMS_ITS | Clinical Summary ---
Author Organization [employer] Address [address] [facility] 7t [place] [address] Care Team Providers Care Health Editor Name Role Phone Lyla Rodrigez MD Primary Care Pro vider Allergies No known active allergies Medications divalproex (Depakote ER) 500 MG 24 hr tablet TAKE 2 TABLETS BY MOUTH EVERY DAY IN THE MORNING DIRECTED 3 Active FLUoxetine (PROzac) 20 MG capsule 3 Active mirtazapine (Remeron) 7.5 MG tablet Take 7.5 mg by mouth at bedtime. 3 Active rosuvastatin (Crestor) 10 MG tabletIndications: Mixed hyperlipidemia Take 1 tablet (10 mg) by mouth Once per day. 30 tablet 11 4 025 Active polyvinyl alcohol (Liquifilm Tears) 1.4 % ophthalmic solution USE 1-2 DROPS IN IN THE LEFT EYE FOUR TIMES DAILY 4 Active cyclobenzaprine (Flexeril) 5 MG tablet TAKE 1 TABLET BY MOUTH 3 TIMES A DAY NEEDED FOR MUSCLE SPASM 4 Active clotrimazole-betam ethasone (Lotrisone) cream APPLY TOPICALLY 2 TIMES A DAY FOR 4 WEEKS APPLY THIN COAT 2 TIMES PER DAY 4 Active cholecalciferol VITAMIN D (Vitamin D-3) 50 MCG (1999) capsule TAKE 1 CAPSULE BY MOUTH EVERY DAY 90 capsule 1 4 Active ibuprofen 800 MG tablet TAKE 1 TABLET BY MOUTH EVERY DAY NEEDED FOR MILD PAIN OR HEADACHES 15 tablet 4 Active fenofibrate micronized (Lofibra) 67 MG capsule TAKE 1 CAPSULE BY MOUTH EVERY DAY WITH FOOD 90 capsule 1 4 Active [employer] Lubricant Eye Drops 0.4-0.3 % solution ADMINISTER 1 DROP INTO AFFECTED EYE(S) AT NOON AND 1 DROP IN THE EVENING. 15 mL 3 4 Active hydrocortisone 1 % creamIndications:R boris Apply topically 2 times daily. 28 g 4 Active ammonium lactate (Lac-Hydrin) 12 % lotionIndications: Rash Apply topically if needed for dry skin. 225 g 4 025 Active lisinopril 10 MG tablet TAKE 1 TABLET BY MOUTH EVERY DAY 90 tablet 1 5 Active Active Problems Problem Noted Date Diagnosed Date Tension headache 11/28/2023 Obesity, morbid 10/07/2023 Family history of cancer 10/07/2023 Severe dental caries 09/03/2023 Dental root caries 09/03/2023 Painful penile erection 07/12/2023 Assessment & Plan (07/12/2023 7:42 PM EST): Normal examination , there is no phimosis nor balanitis -given reported pt's discomfort referred today to urologist for evaluation of circumcision if needed -will place in TC list for annual exam. Health care maintenance 12/20/2022 Overview (12/20/2022): Routine Health Maintenance: Immunizations: Up to date HIV: Nonreactive 06/20/21 Hep C: Nonreactive 06/20/21 Hepatitis B: Reactive surface antibodies 06/20/21 Colonoscopy: Due for screening per ACS guidelines. Would benefit from EGD and colonoscopy. Will refer to GI again for those procedures d/t RUQ pain. PSA: Discuss next time Lung cancer: Former smoker. Discuss screening at next visit Last dentist visit: plans to make appt today Eye visit: Unknown Anxiety 06/20/2021 Bipolar disorder 06/20/2021 Overview (12/20/2022): Patient care managed by [facility] Depakote 500 mg 2 tabs in the AM Assessment & Plan (12/20/2022 11:12 AM EDT): Continue medication Care with psych management F/u PRN Essential hypertension 06/20/2021 Overview (12/20/2022): Taking lisinopril 10 mg daily Assessment & Plan (12/20/2022 1:01 PM EDT): BP controlled 113/72 F/u PRN Hyperlipidemia 06/20/2021 Overview (12/20/2022): Lipid panel elevated 06/20/21 fenofibrate 67 mg daily Assessment & Plan (12/20/2022 1:06 PM EDT): Order lipid panel Continue fenofibrate 67 mg daily If still elevated, will Rx rosuvastatin 10 mg daily F/u 3 months or sooner PRN with new PCP Irritable bowel syndrome 06/20/2021 Steatosis of liver 06/20/2021 Overview (12/20/2022): AST and ALT elevated 06/20/21 Assessment & Plan (12/20/2022 1:00 PM EDT): Check hepatic function again Notify results Educated pt to avoid ETOH and follow low fat diet Will also check iron levels d/t elevated liver enzymes If still elevated will order US abdomen F/u 3 months new PCP Vitamin D deficiency 06/20/2021 Resolved Problems Problem Noted Date Diagnosed Date Resolved Date Left lower quadrant pain 12/03/2022 Helicobacter pylori gastroin testinal tract infection 06/26/2021 10/07/2023 Overview (12/20/2022): H pylori positive 06/21/21 Completed antibiotic treatment Assessment & Plan (12/20/2022 12:53 PM EDT): Plan: Repeat h pylori test of cure. Notify results F/u PRN Encounters Date Type Department Care Team Description 06/15/2024 Telephone [facility] MEDICINE [address] [place] [address] Lyla Rodrigez MD Appointment Request 05/21/2024 Refill [facility] CHC MED & PEDS [address] [facility] [place] [address] Lyla Rodrigez MD 05/18/2024 3:30 PM EST Office Visit [facility] ADULT DENTAL [address] [place] [address] IainhCaitanya goodman DDS 05/13/2024 Refill [facility] MEDICINE [address] [place] [address] Lyla Rodrigez MD 04/29/2024 Orders Only [facility] MEDICINE [address] [place] [address] Marisela Carter MD 04/22/2024 Refill [facility] MEDICINE [address] [place] [address] Kimberly Monet NP Acute cystitis without hematuria 03/22/2024 Telephone [facility] MEDICINE [address] [place] [phone] Sarai Machuca RN Results 03/22/2024 Orders Only [facility] MEDICINE [address] [place] [phone] Kimberly Monet NP Acute cystitis without hematuria (Primary Dx) from Last 3 Months Immunizations Name Administration Dates Next Due Influenza Injectable Quadriv alant Preservative Free IIV4 MDCK 04/23/2023 Influenza injectable quadriv alent IIV4 with preservative 04/21/2017 Influenza injectable quadrivalent preservative f ree 05/14/2021,01/27/2020 Influenza, IIV3, injectable 01/11/2020 Tdap 04/21/2017 Family History Medical History Relation Name Comments Leukemia Mother's Brother blood ca? Sister breast ca- 30s Sister Relation Name Status Comments Mother's Brother Sister Social History Tobacco Use Types Packs/Day Years Used Date Smoking Tobacco: Former Cigarettes Smokeless Tobacco: Never Tobacco Cessation:Counseling Given: Not Answered Comments:Started 15 y of age and stopped [...] not to disclose 2021 10:18 AM EDT Last Filed Vital Signs Vital Sign Reading Time Taken Comments Blood Pressure 132/70 05/18/2024 3:17 PM EST Pulse 59 03/17/2024 11:10 AM EST Temperature 36.7 ??C (98 ??F) 03/17/2024 11:10 AM EST Respiratory Rate 15 03/17/2024 11:10 AM EST Oxygen Saturation 97% 03/17/2024 11:10 AM EST Inhaled Oxygen Concentration - - Weight 102 kg (224 lb 3.2 oz) 03/17/2024 11:10 A M EST Height 165.1 cm (5' 5 ) 03/17/2024 11:10 AM EST Body Mass Index 37.31 03/17/2024 11:10 AM EST Plan of Treatment Upcoming Encounters Date Type Department Care Team (Late st Contact Info) Description 07/13/2024 1:00 PM EST Office Visit [facility] ADULT DENTAL [address] [place] [address] Mechelle Price Health Maintenance Due Date Last Done Comments CT Colonography 1975 Colonoscopy 1975 FIT 1975 FOBT 1975 Sigmoidoscopy 1975 Alcohol/Substance Use Screening 1987 Family Planning (PISQ) 1990 Hepatitis A Vaccines (1 of 2 - Risk 2-dose series) 1994 Hepatitis B Vaccines (1 of 3 - 19+ 3-dose series) 1994 Dental Prophylaxis 09/17/2019 03/18/2019, 0 09/13/2016, 12/29/2015 COVID-19 Vaccine ( season) 2024 04/03/2021, 08/22/2020, 07/25/2020 Dental Oral Exam 01/26/2024 07/25/2023, 11/2018, 09/13/2016, Additional history exists Dental X-Ray: Bitewings 07/25/2024 07/25/19 24, 03/18/2019, 09/13/2016, Additional history exists SDOH Screening 09/24/2024 09/25/2023 Depression Screening 10/06/2024 10/07/2023, 10/07/19 Tobacco Screening 03/17/2025 03/17/2024 Zoster Vaccines (1 of 2) 2025 Colorectal Cancer Screening 07/09/2026 FIT DNA/Cologuard 07/09/2026 07/09/2023 DTaP/Tdap/Td Vaccines (2 - Td or Tdap) 04/21/2027 04/21/2017 Dental X-Ray: Full Mouth 05/19/2027 025, 07/25/2023, 12/28/2015 Lipid Panel 10/22/2028 10/23/2023, 11/10, 06/20/2021, Additional history exists RSV Patients and Patients Aged 60 years or older (1 - 1-dose 75+ series) 2050 HIV Screening Completed 10/23/2023, 06/20/2021 Hepatitis C Screening Completed 10/23/2023, 022 Influenza Vaccine Completed 02/02/2024, , 05/14/2021, Additional history exists HIB Vaccines Aged Out No longer eligi ble based on patient's age to complete this topic HPV Vaccines Aged Out No longer eligi ble based on patient's age to complete this topic IPV Vaccines Aged Out No longer eligi ble based on patient's age to complete this topic Meningococcal Vaccine Aged Out No haylie isaak eligible based on patient's age to complete this topic Pneumococcal Vaccine: Pediatrics (0 to 5 Years) and At-Risk Patients (6 to 49) Years) Aged Out No longer eligible based on patient's age to complete this topic RSV under 20 months Aged Out No longe r eligible based on patient's age to complete this topic Rotavirus Vaccines Aged Out No longer eligible based on patient's age to complete this topic Procedures Procedure Name Priority Date/Time Associated Diagnosis Comments ADJUNCTIVE GENERAL SERVICES - PROFESSIONAL VISITS - CASE PRESENTATION, SUBSEQUENT TO DETAILED AND EXTENSIVE TREATMENT PLANNING Routine 05/18/2024 3:30 PM EST PANORAMIC RADIOGRAPHIC IMAGE Routine 05/18/2024 3:30 PM EST LIMITED ORAL EVALUATION - PROBLEM FOCUSED Routine 05/18/2024 3:30 PM EST HEPATITIS C AB W/REFL TO HCV RNA, QN, PCR Routine 10/23/2023 10:56 AM EDT Annual physical exam HIV 1/2 ANTIGEN/ANTIBODY, FOURTH GENERATION W/RFL Routine 10/23/2023 10:56 AM EDT Annual physical exam LIPID PANEL, STANDARD Routine 10/23/2023 10:56 AM EDT Annual physical exam DIAGNOSTIC - DIAGNOSTIC IMAGING - INTRAORAL - COMPREHENSIVE SERIES OF RADIOGRAPHIC IMAGES Routine 07/25/2023 1:30 PM EDT Encounter for dental examination Dental caries Dental abscess Dental plaque PERIODIC ORAL EVALUATION - ESTABLISHED PATIENT Routine 07/25/2023 1:30 PM EDT Encounter for dental examination Dental caries Dental abscess Dental plaque HM FIT DNA/COLOGUARD CANCER SCREENING Routine 07/09/2023 12:29 PM EST PROPHYLAXIS - ADULT Routine 03/18/2019 1 2:00 AM EST from Last 3 Months or Most Recently Relevant to Health Maintenance Results * Hepatitis C Antibody with Reflex to HCV, RNA, Quantitative, Real-Time PCR (10/23/2023 10:56 AM EDT) Hepatitis C Antibody Nonreactive Nonreactive [facility] Comment:Antibodies to HCV no t detected; does not exclude early acuteHCV infection. Blood Venous blood specimen / Unknown 10/23/2023 10:56 AM EDT 10/23/2023 11:49 AM EDT us Lyla Toledo MD LAB BLOOD ORDERAB LES Final Result Performing Organization Address [facility] [address]/ZIP Co de Phone Number [facility] [address] [place] [phone] * HIV-1/2 Antigen and Antibodies, Fourth Generation, with Reflexes (10/23/2023 10:56 AM EDT) HIV AB/AG Nonreactive Nonreactive [facility] Comment:HIV-1 p24 Ag and/or HIV-1/HIV-2 Ab not detected.A test result that is nonreactive does not exclude thepossibility of exposure to or infection with HIV-1 and/orHIV-2. Nonreactive results in this assay for individualswith prior exposure to HIV-1 and/or HIV-2 may be due toantigen and antibody levels that are below the limit ofdetection of this assay.The [employer] HIV Ag/Ab Combo assay result andsupplemental assay results should be interpreted inconjunction with the patient's clinical presentation,history and other laboratory results. If the results areinconsistent with clinical evidence, additional testing issuggested to confirm the result. Blood Venous blood specimen / Unknown 10/23/2023 10:56 AM EDT 10/23/2023 11:49 AM EDT us Lyla Toledo MD LAB BLOOD ORDERAB LES Final Result Performing Organization Address [facility] [address]/ZIP Co de Phone Number [facility] [address] [place] [phone] * (ABNORMAL) Lipid Panel, Standard (10/23/2023 10:56 AM EDT) Triglycerides 72 <150 mg/dL [facility] Comment:Desirable Triglyceri de: less than 150 mg/dLBorderline High Triglyceride 150-199 mg/dLHigh Triglyceride: 200-499 mg/dLVery High Triglyceride: greater than or equal to 5OO mg/dL Cholesterol 165 <200 mg/dL [facility] Comment:Desirable Cholestero l: less than 200 mg/dLBorderline High Cholesterol: 200-239 mg/dLHigh Cholesterol: greater than 239 mg/dL LDL Cholesterol Calculated 102(H) <100 mg/dL [facility] Comment:Desirable LDL: less than 100 mg/dLNear Optimal/Above Optimal LDL: 110- 129 mg/dLBorderline High LDL: 130-159 mg/dLHigh LDL: 160-189 mg/dLVery High LDL: greater than or equal to 190 mg/dL HDL Cholesterol 49 >40 mg/dL [facility] Comment:Desirable HDL: great er than 40 mg/dL Note: This HDL assay may give artificially low results in patients with liver disease. Blood Venous blood specimen / Unknown 10/23/2023 10:56 AM EDT 10/23/2023 11:49 AM EDT Lyla Toledo MD LAB BLOOD ORDERAB LES Final Result [facility] [address] [place] [phone] * FIT DNA/Cologuard Cancer Screening (07/09/2023 12:29 PM EST) Stool Historical Provider HEALTH MAINTENANCE Final Result from Last 3 Months or Most Recently Relevant to Health Maintenance Insurance [facility] Care Teams Health Editor Relationship Specialty Start Date End Date Lyla Rodrigez MD [address] [place] [phone] PCP - General Internal Medicine 12/24/22
--- OUTSIDE RECORDS SUMMARY | 2024-06-21 13:36 | XMS_ITS | Encounter Summary ---
Author Organization [employer] Address [address] [place] [address] Care Team Providers Care Sheriff Officer Name Role Phone Lyla Rodrigez MD Primary Care Pro vider Reason for Visit * Reason Comments Med Refill Encounter Details Date Type Department Care Team ([facility] st Contact Info) Description 04/22/2024 Refill [facility] MEDICINE [address] [place], [place] [phone] Kimberly Monet NP [address] [place], [place] [phone] Acute cystitis without hematuria Social History Tobacco Use Types Packs/Day Years [...] [facility] [address] [place] [address] Mechelle Price documented as of this encounter Visit Diagnoses Diagnosis Acute cystitis without hematuria documented in this encounter Additional Health Concerns Assessment Noted Time PHQ-9 Depression Total Score: 4 10/07/19 24 10:52 AM EDT documented as of this encounter Care Teams Sheriff Officer Relationship Specialty Start Date End Date Lyla Rodrigez MD [address] [place] [address] PCP - General Internal Medicine 12/24/22 documented as of this encounter
--- OUTSIDE RECORDS SUMMARY | 2024-06-21 13:36 | XMS_ITS | Patient Health Record ---
Author Organization [facility] Address [address] [place] [address] Care Team Providers Care Pot Washer Name Role Phone Rico Pedroza Primary Care Provider Flynn Brooks [phone] REASON FOR REFERRAL No Information MEDICATIONS Medication [...] syndrome (K58.9) Active confirmed Irritable bowel syndrome (32806550) Problem Left lower quadrant abdominal pain (R10.32) Active confirmed Left lower quadrant pain (250305625) Problem Elevated liver function tests (R79.89) Active confirmed Elevated liver enzymes level (502886651) PLAN OF TREATMENT Pending Test Test Name Order Date LIVER PROFILE 07/04/2021 LIVER PROFILE 03/28/2020 IRON + IBC (FE) 03/28/2020 FERRITIN 03/28/2020 CBC w DIFF 07/04/2021 HEPATITIS B, C PROFILE 03/28/2020 CERULOPLASMIN 03/28/2020 Prothrombin Time INR 07/04/2021 Insurance Providers Payer Name Payer Address Payer Phone Subscriber Number Group Number Insured Name Patient Relationship to Insured Coverage Start Date Coverage End Date [facility] [address] [place] [address] [id number] JEREMY NATARAJAN Self - patient is the insured MEDICAL (GENERAL) HISTORY Medical History History ICD Code Denies NH,DM,CVA,Lung disease,renal dise ase Hypertension Anxiety/Depression Hyperlipidemia Fatty liver Surgical History Surgery Date(Month/Year) Appendectomy
--- OUTSIDE RECORDS SUMMARY | 2024-06-21 13:36 | XMS_ITS | Encounter Summary ---
Author Organization [facility] Address [address] [place] [address] 7t [place] [address] Care Team Providers Care Angle Shear Set Up Operator Name Role Phone Tammy Reynoso Primary Care Provider +1- [phone] Lyla Rodrigez MD Primary Care Pro vider Encounter Details Date Type Department Care Team (Late st Contact Info) Description 11/04/2022 Orders Only [facility] CHC MED & PEDS [address] [place], [place] [phone] Jenise Reyes LPN Social History Tobacco Use [...] Description 07/13/2024 1:00 PM EST Office Visit [facility] ADULT DENTAL [address] [place] [address] Mechelle Price documented as of this encounter Visit Diagnoses Not on filedocumented in this encounter Care Teams Angle Shear Set Up Operator Relationship Specialty Start Date End Date Tammy Reynoso FNP PCP - General Family Medicine 03/02/21 12/23/22 Lyla Rodrigez MD [address] [place] [address] PCP - General Internal Medicine 12/24/22 documented as of this encounter
--- OUTSIDE RECORDS SUMMARY | 2024-06-21 13:36 | XMS_ITS | Encounter Summary ---
Author Organization [employer] Address [address] [facility] [facility] [address] [place] [address] Care Team Providers Care Liquid Waste Treatment Plant Operator Name Role Phone Lyla Rodrigez MD Primary Care Pro vider Encounter Details Date Type Department Care Team (Late st Contact Info) Description 03/22/2024 Orders Only [facility] MEDICINE [address] [place], [place] [phone] Kimberly Monet NP [address] [place], [place] [phone] Acute cystitis without hematuria (Primary Dx) Social History Tobacco Use Types Packs/Day Years [...] is your housing situation today? I have daisysamson dior 03/17/[address] you [...] Description 07/13/2024 1:00 PM EST Office Visit [facility] ADULT DENTAL [address] [place] [address] Mechelle Price documented as of this encounter Visit Diagnoses Diagnosis Acute cystitis without hematuria- Primary documented in this encounter Additional Health Concerns Assessment Noted Time PHQ-9 Depression Total Score: 4 10/07/19 24 10:52 AM EDT documented as of this encounter Care Teams Liquid Waste Treatment Plant Operator Relationship Specialty Start Date End Date Lyla Rodrigez MD [address] [place] [address] PCP - General Internal Medicine 12/24/22 documented as of this encounter
--- OUTSIDE RECORDS SUMMARY | 2024-06-21 13:36 | XMS_ITS | Encounter Summary ---
Author Organization [employer] [facility] Address [address] [facility] [address] [place] [address] Care Team Providers Care Gang Head Saw Operator Name Role Phone Lyla Rodrigez MD Primary Care Pro vider Reason for Visit * Reason Onset Date Comments Appointment Request 06/15/2024 Encounter Details Date Type Department Care Team ([facility] st Contact Info) Description 06/15/2024 Telephone [facility] MEDICINE [address] [place] [address] Lyla Rodrigez MD [address] [place] [address] Appointment Request Social History Tobacco Use Types Packs/Day Years [...] encounter Miscellaneous Notes * Telephone Encounter - [place] La - 06/15/2024 11:51 AM EST Called PT to schedule an appt with PCP NA\LVM documented in this encounter Plan of Treatment Upcoming Encounters Date Type Department Care Team (Late st Contact Info) Description 07/13/2024 1:00 PM EST Office Visit [facility] ADULT DENTAL [address] [place] [address] Mechelle Price documented as of this encounter Visit Diagnoses Not on filedocumented in this encounter Additional Health Concerns Assessment Noted Time PHQ-9 Depression Total Score: 4 10/07/19 24 10:52 AM EDT documented as of this encounter Care Teams Gang Head Saw Operator Relationship Specialty Start Date End Date Lyla Rodrigez MD [address] [place] [address] PCP - General Internal Medicine 12/24/22 documented as of this encounter
--- OUTSIDE RECORDS SUMMARY | 2024-06-21 13:37 | XMS_ITS | Encounter Summary ---
Author Organization [email or web address] [facility] Address [address] [place] [address] 7t [place] [address] Care Team Providers Care Park Activities Coordinator Name Role Phone Tammy Reynoso Primary Care Provider +1- [phone] Lyla Rodrigez MD Primary Care Pro vider Encounter Details Date Type Department Care Team (Late st Contact Info) Description 08/06/2022 Orders Only [facility] MED & PEDS [address] [place], [place] [phone] Jenise Reyes LPN Social History Tobacco Use [...] Description 07/13/2024 1:00 PM EST Office Visit [facility] ADULT DENTAL [address] [place] [address] Mechelle Price documented as of this encounter Visit Diagnoses Not on filedocumented in this encounter Care Teams Park Activities Coordinator Relationship Specialty Start Date End Date Tammy Reynoso FNP PCP - General Family Medicine 03/02/21 12/23/22 Lyla Rodrigez MD [address] [place] [address] PCP - General Internal Medicine 12/24/22 documented as of this encounter
--- OUTSIDE RECORDS SUMMARY | 2024-06-21 13:37 | XMS_ITS | Encounter Summary ---
Author Organization [employer] [facility] Address [address] [facility] 7t [place] [address] Care Team Providers Care Metal Mockup Maker Name Role Phone Lyla Rodrigez MD Primary Care Pro vider Reason for Visit * Reason Comments Med Change Request Encounter Details Date Type Department Care Team ([facility] st Contact Info) Description 07/27/2023 Refill [facility] MED[facility]INE [address] [place], [place] [phone] Lyla Rodrigez MD [address] [place] [address] Social History Tobacco Use Types Packs/Day Years [...] the past 12 months, has t he [employer], oil or water company threatened to shut [...] Telephone Encounter - Lyla Toledo MD - 07/29/2023 7:29 PM EDT Sent new px documented in this encounter Plan of Treatment Upcoming Encounters Date Type Department Care Team (Late st Contact Info) Description 07/13/2024 1:00 PM EST Office Visit [facility] ADULT DENTAL [address] [place] [address] Mechelle Price documented as of this encounter Visit Diagnoses Not on filedocumented in this encounter Additional Health Concerns Assessment Noted Time PHQ-9 Depression Total Score: 0 12/04/19 23 2:55 PM EDT documented as of this encounter Care Teams Metal Mockup Maker Relationship Specialty Start Date End Date Lyla Rodrigez MD [address] [place] [address] PCP - General Internal Medicine 12/24/22 documented as of this encounter
--- OUTSIDE RECORDS SUMMARY | 2024-06-21 13:37 | XMS_ITS | Encounter Summary ---
Author Organization [facility] Address [address] [place] [address] 7t [place] [address] Care Team Providers Care Chip Bin Operator Name Role Phone Tammy Reynoso Primary Care Provider +1- [phone] Lyla Rodrigez MD Primary Care Pro vider Encounter Details Date Type Department Care Team (Latest Contact Info) Description 03/18/2019 Abstract [facility] CONVERSIONS Dental, Provider, DDS Social History Tobacco Use Types Packs/Day Years [...] Upcoming Encounters Date Type Department Care Team ( st Contact Info) Description 07/13/2024 1:00 PM EST Office Visit [facility] ADULT DENTAL [address] [place] [address] Mechelle Price documented as of this encounter Visit Diagnoses Not on filedocumented in this encounter Care Teams Chip Bin Operator Relationship Specialty Start Date End Date Tammy Reynoso FNP PCP - General Family Medicine 03/02/21 12/23/22 Lyla Rodrigez MD [address] [place] [address] PCP - General Internal Medicine 12/24/22 documented as of this encounter
[2024-06-21 13:44] LABS: Basophils Percent Auto 0.5 % (0-2); Eosinophils Absolute Auto 0.1 X10*3/uL (0.0-0.4); Hematocrit 43.5 % (42.0-52.0); Hemoglobin 14.7 g/dl (14.0-18.0); Imm Gran Abs Auto 0.01 X10*3/uL (0.00-0.03); Imm Gran Pct Auto 0.2 % (0.0-0.4); Lymphocytes Absolute Auto 3.3 X10*3/uL (1.2-4.9); Lymphocytes Percent Auto 51.5 % (20-40); Mean Corpuscular HGB Conc 33.8 g/dl (31.0-36.0); Mean Corpuscular Hemoglobin 30.4 pg (27.0-33.0); Mean Corpuscular Volume 89.9 fL (80.0-98.0); Mean Platelet Volume 12.7 fL (9.4-12.4); Monocytes Absolute Auto 0.6 X10*3/uL (0.1-1.2); Monocytes Percent Auto 9.6 % (2-11); Neutrophils Absolute Auto 2.3 x10*3/uL (2.0-8.3); Neutrophils Percent Auto 36.2 % (45-73); Platelet Count 178 X10*3/uL (160-400); Red Blood Count 4.84 X10*6/uL (4.60-5.80); Red Cell Distribution Width 12.7 % (11.0-16.0); White Blood Count 6.5 X10*3/uL (4.8-10.8)
[2024-06-21 14:28] LABS: Alanine Aminotransferase 59 U/L (0-40); Albumin Level 4.7 g/dL (3.5-5.0); Alkaline Phosphatase 92 U/L (39-117); Anion Gap 8 (12-20); Aspartate Amino Transferase 34 U/L (5-37); Bilirubin Direct 0.1 mg/dL (0.0-0.5); Bilirubin Total 0.3 mg/dL (0.0-1.0); Blood Urea Nitrogen 14 mg/dL (9-16); Calcium 9.2 mg/dL (8.4-10.2); Carbon Dioxide 28 mmol/L (22-29); Chloride 110 mmol/L (96-108); Cholesterol 164 mg/dL (<200); Estimated Glomerular Filt Rate > 60; Glucose Random 78 mg/dL (60-115); HDL Cholesterol 53 mg/dL (>40); LDL Cholesterol Calculated 97 mg/dL (<100); Potassium 4.1 mmol/L (3.3-5.1); Sodium 142 mmol/L (135-145); Total Protein 8.2 g/dL (6.5-8.0); Triglycerides 71 mg/dL (<150)
[2024-06-21 14:42] LABS: Valproate < 12.5 mcg/mL (50.0-100.0)
== END 2024-06-21 12:37 | disposition home or self-care (01) ==
LOC: HO.LAB 12:36
PROVIDERS: PCP Student in an Organized Health Care Education/Training Program; Visit Provider Clinical Nurse Specialist Psychiatric/Mental Health
DX: Z79.899 Other long term (current) drug therapy (principal)
CPT/HCPCS: 36415; 80048; 80061; 80076; 80164; 85025

== ENCOUNTER 2024-08-25 15:48 | Outpatient (REF) | payer OTHER, SELFPAY ==
--- NOTE | ~2024-08-25 | XR_ITS ---
EXAMINATION: XR LUMBOSACRAL SPINE CLINICAL INFORMATION: pt w chronic lower back pain COMPARISON: None available. TECHNIQUE: Three views of the lumbosacral spine. FINDINGS: No significant scoliosis. Normal lordosis. No subluxations. No acute fracture, or suspicious bone lesion. Minimal wedging of the ventral aspect of T12, chronic appearance. Mild multilevel disc degeneration present with disc osteophytic spurs ventrally at L2-3 and L3-4. Normal facet alignment. No significant facet degeneration. Normal-appearing SI joints and sacrum. No soft tissue abnormalities. XR/XR lumbar spine 2-3V IMPRESSION: 1. No acute bony abnormalities. 2. Chronic mild spondylosis as discussed. Electronically signed by: Raoul Wilhelm MD 08/25/2024 04:20 PM EDT
--- OUTSIDE RECORDS SUMMARY | 2024-08-25 18:10 | XMS_ITS | Encounter Summary ---
Author Organization [facility] Address [address] [facility] [address] 7t [place] [address] Care Team Providers Care Government Property Inspector Name Role Phone Lyla Rodrigez MD Primary Care Pro vider Encounter Details Date Type Department Care Team (Late st Contact Info) Description 04/29/[address] [facility] MEDICINE [address] [place], [place] [phone] Provider, MD Marisela Social History Tobacco Use [...] Care Team (Late st Contact Info) Description 09/14/2024 2:30 PM EDT Office Visit [facility] ADULT DENTAL [address] [place] [address] Cat Deal DDS [address] [place] [address] 11/11/2024 1:30 PM EDT Office Visit [facility] MEDICINE [address] [place] [address] Lyla Rodrigez MD [address] [place] [address] 01/19/2025 1:00 PM EDT Office Visit [facility] ADULT DENTAL [address] [place] [address] Nayeli Persaud documented as of this encounter Procedures Procedure Name Priority Date/Time Associated Diagnosis Comments HM FIT DNA/COLOGUARD CANCER SCREENING Routine 07/09/2023 12:29 PM EST documented in this encounter Results * FIT DNA/Cologuard Cancer Screening (07/09/2023 12:29 PM EST) Stool us Historical Provider HEALTH MAINTENANCE Final Result documented in this encounter Visit Diagnoses Not on filedocumented in this encounter Additional Health Concerns Assessment Noted Time PHQ-9 Depression Total Score: 4 10/07/19 24 10:52 AM EDT documented as of this encounter Care Teams Government Property Inspector Relationship Specialty Start Date End Date Lyla Rodrigez MD [address] [place] [address] PCP - General Internal Medicine 12/24/22 Geeeamadeleine 07/24/21 documented as of this encounter
--- OUTSIDE RECORDS SUMMARY | 2024-08-25 18:10 | XMS_ITS | Patient Health Record ---
Author Organization [facility] Address [address] [place] [address] Care Team Providers Care Pharmacy Intern Name Role Phone Rico Pedroza Primary Care Provider Flynn Brooks [phone] Reason For Referral No Information Medications Medication SIG (Take, Route, Frequency, Duration) Notes [...] angeline l Orally Once a day Active Immunizations Vaccine Route Administration Date Status Comme nts Influenza Unknown 01/11/2020 Administered Social History Tobacco Use: Social History Observation Description Date Details (start date - stop date) Never Smoker NA - NA Tobacco Use/Smoking Question Answer Notes Patient is a nonsmoker Alcohol Screen Question Answer Notes Did you have a drink containing alcohol in the p ast year? No Points 0 Interpretation Negative Section Notes: Nonsmoker; no sig alcohol Problems Problem Type SNOMED Code ICD Code Onset Dates Problem Status W/U Status Risk Notes Problem Irritable bowel syndrome (13238435) Irritable bowel syndrome (K58.9) Active confirmed Problem Elevated liver enzymes level (778359302) Elevated liver function tests (R79.89) Active confirmed Problem Left lower quadrant pain (137645602) Left lower quadrant abdominal pain (R10.32) Active confirmed Plan Of Treatment Pending Test Test Name Order Date LIVER PROFILE 03/28/2020 LIVER PROFILE 07/04/2021 IRON + IBC (FE) 03/28/2020 FERRITIN 03/28/2020 CBC w DIFF 07/04/2021 HEPATITIS B, C PROFILE 03/28/2020 CERULOPLASMIN 03/28/2020 Prothrombin Time INR 07/04/2021 Insurance Providers Payer Name Payer Address Payer Phone Subscriber Number Group Number Insured Name Patient Relationship to Insured Coverage Start Date Coverage End Date [facility] [address] [place] [address] [id number] JEREMY NATARAJAN Self - patient is the insured Medical (General) History Medical History History ICD Code Denies MS,DM,CVA,Lung disease,renal dise ase Hypertension Anxiety/Depression Hyperlipidemia Fatty liver Surgical History Surgery Date(Month/Year) Appendectomy
--- OUTSIDE RECORDS SUMMARY | 2024-08-25 18:10 | XMS_ITS | Encounter Summary ---
Author Organization [employer] Address [address] [facility] 7t [place] [address] Care Team Providers Care Director Of Analytical Development Name Role Phone Lyla Rodrigez MD Primary Care Pro vider Reason for Visit * Reason Onset Date Comments appt broken tooth 08/11/2023 Encounter Details Date Type Department Care Team (Late st Contact Info) Description 08/11/2023 Telephone [facility] ADULT DENTAL [address] [place] [address] Cat Deal DDS [address] [place] [address] appt broken tooth Social History Tobacco Use [...] Description 09/14/2024 2:30 PM EDT Office Visit [facility] ADULT DENTAL [address] [place] [address] Cat Deal DDS [address] [place] [address] 11/11/2024 1:30 PM EDT Office Visit [facility] MEDICINE [address] [place] [address] Lyla Rodrigez MD 230 [place] [address] 01/19/2025 1:00 PM EDT Office Visit [facility] ADULT DENTAL [address] [place] [address] Nayeli Persaud documented as of this encounter Visit Diagnoses Not on filedocumented in this encounter Additional Health Concerns Assessment Noted Time PHQ-9 Depression Total Score: 0 12/04/19 2:55 PM EDT documented as of this encounter Care Teams Director Of Analytical Development Relationship Specialty Start Date End Date Lyla Rodrigez MD [address] [place] [address] PCP - General Internal Medicine 12/24/22 Geeeamadeleine 07/24/21 documented as of this encounter
--- OUTSIDE RECORDS SUMMARY | 2024-08-25 18:10 | XMS_ITS | Encounter Summary ---
Author Organization [facility] Address [address] [facility] 7t [place] [address] Care Team Providers Care Application Release Manager Name Role Phone Lyla Rodrigez MD Primary Care Pro vider Reason for Visit * Reason Comments Med Refill Encounter Details Date Type Department Care Team ([facility] st Contact Info) Description 05/13/2024 Refill [facility] [address] [place], [place] [phone] Lyla Rodrigez MD [address] [place] [address] Social History Tobacco Use Types Packs/Day Years [...] Description 09/14/2024 2:30 PM EDT Office Visit [facility] ADULT DENTAL [address] [place] [address] Cat Deal DDS [address] [place] [address] 11/11/2024 1:30 PM EDT Office Visit [facility] [address] [place] [address] Lyla Rodrigez MD [address] [place] [address] 01/19/2025 1:00 PM EDT Office Visit [facility] ADULT DENTAL [address] [place] [address] Nayeli Persaud documented as of this encounter Visit Diagnoses Not on filedocumented in this encounter Additional Health Concerns Assessment Noted Time PHQ-9 Depression Total Score: 4 10/07/19 24 10:52 AM EDT documented as of this encounter Care Teams Application Release Manager Relationship Specialty Start Date End Date Lyla Rodrigez MD [address] [place] [address] PCP - General Internal Medicine 12/24/22 Aveanna 07/24/21 documented as of this encounter
--- OUTSIDE RECORDS SUMMARY | 2024-08-25 18:10 | XMS_ITS | Encounter Summary ---
Author Organization [facility] Address [address] [facility] [address] 7t [place] [address] Care Team Providers Care Executive Director Of Nursing Name Role Phone Lyla Rodrigez MD Primary Care Pro vider Encounter Details Date Type Department Care Team (Late st Contact Info) Description 03/22/2024 Orders Only [facility] 230 [place], [place] [phone] Kimberly Monet NP [address] [place], [place] [phone] Acute cystitis without hematuria (Primary Dx) Social [...] Description 09/14/2024 2:30 PM EDT Office Visit [facility] ADULT DENTAL [address] [place] [address] Cat Deal DDS [address] [place] [address] 11/11/2024 1:30 PM EDT Office Visit [facility] [address] [place] [address] Lyla Rodrigez MD [address] [place] [address] 01/19/2025 1:00 PM EDT Office Visit [facility] ADULT DENTAL [address] [place] [address] Nayeli Persaud documented as of this encounter Visit Diagnoses Diagnosis Acute cystitis without hematuria- Primary documented in this encounter Additional Health Concerns Assessment Noted Time PHQ-9 Depression Total Score: 4 10/07/19 24 10:52 AM EDT documented as of this encounter Care Teams Executive Director Of Nursing Relationship Specialty Start Date End Date Lyla Rodrigez MD [address] [place] [address] PCP - General Internal Medicine 12/24/22 Aveanna 07/24/21 documented as of this encounter
--- OUTSIDE RECORDS SUMMARY | 2024-08-25 18:10 | XMS_ITS | Encounter Summary ---
Author Organization [facility] [facility] Address [address] [facility] 7t [place] [address] Care Team Providers Care Strategy Director Name Role Phone Lyla Rodrigez MD Primary Care Pro vider Reason for Visit * Reason Comments Med Change Request Encounter Details Date Type Department Care Team ([facility] st Contact Info) Description 07/27/2023 Refill [facility] MEDICINE [address] [place], [place] [phone] Lyla Rodrigez MD [address] [place] [address] Social History Tobacco Use Types Packs/Day Years [...] the past 12 months, has t he [employer], [employer], oil or water [employer] threatened to shut off services in your [...] Description 09/14/2024 2:30 PM EDT Office Visit [facility] ADULT DENTAL [address] [place] [address] Cat Deal DDS [address] [place] [address] 11/11/2024 1:30 PM EDT Office Visit [facility] MEDICINE [address] [place] [address] Lyla Rodrigez MD [address] [place] [address] 01/19/2025 1:00 PM EDT Office Visit [facility] ADULT DENTAL [address] [place] [address] Nayeli Persaud documented as of this encounter Visit Diagnoses Not on filedocumented in this encounter Additional Health Concerns Assessment Noted Time PHQ-9 Depression Total Score: 0 12/04/19 23 2:55 PM EDT documented as of this encounter Care Teams Strategy Director Relationship Specialty Start Date End Date Lyla Rodrigez MD [address] [place] [address] PCP - General Internal Medicine 8/15/23 [place] 07/24/21 documented as of this encounter
--- OUTSIDE RECORDS SUMMARY | 2024-08-25 18:10 | XMS_ITS | Encounter Summary ---
Author Organization [employer] [facility] Address [address] [facility] 7t [place] [address] Care Team Providers Care Microsoft Infrastructure Consultant Name Role Phone Lyla Rodrigez MD Primary Care Pro vider Reason for Visit * Reason Onset Date Comments Prior Auth Prescription 08/20/2024 Encounter Details Date Type Department Care Team (Late st Contact Info) Description 08/20/2024 Telephone [facility] MEDICINE [address] [place] [address] Lyla Rodrigez MD [address] [place] [address] Prior Auth Prescription Social History Tobacco Use Types Packs/Day Years [...] Answer Date Recorded Patient Health Questionnaire-9 Score 8 08/23/2024 Patient Health Questionnaire-9 Score 8 08/23/2024 Last PHQ-9: Questionnaire Data Not on file 0 08/23/2024 Housing Stability Answer Date Recorded What is [...] Date Recorded Patient Health Questionnaire-2 Score 2 08/23/2024 Sex and Gender Information Value Date Recorded Sex Assigned at Male 03/11/2022 10:18 AM EDT Legal Sex Male 10:18 AM EDT Gender Identity Male 03/11/2022 10:18 AM EDT Sexual Orientation Choose not to disclose 2021 10:18 AM EDT documented as of this encounter Miscellaneous Notes * Telephone Encounter - Darlene Melissa RN - 08/23/2024 1:46 PM EDT Telephone call to pt to advise alternative cream sent, no answer, left voicemail to call back [facility]. Pt to call back PRN. * Telephone Encounter - Brooke New - 08/23/2024 9:45 AM EDT PA Denial for Lidocaine patches received and scanned into media. * Telephone Encounter - Brooke New - 08/20/2024 3:14 PM EDT PA initiated on Covermymeds for lidocaine 5% patches . Approval/denial pending. Jameson: [id number] * Telephone Encounter - Rosalinda La - 08/20/2024 2:55 PM EDT Patient walked in per Pharmacy Patient needs PA for Lidocaine 5% patch. documented in this encounter Plan of Treatment Upcoming Encounters Date Type Department Care Team (Late st Contact Info) Description 09/14/2024 2:30 PM EDT Office Visit [facility] ADULT DENTAL [address] [place] [address] Cat Deal, DDS [address] [place] [address] 11/11/2024 1:30 PM EDT Office Visit [facility] MEDICINE [address] [place] [address] Lyla Rodrigez MD 230 [place] [address] 01/19/2025 1:00 PM EDT Office Visit [facility] ADULT DENTAL [address] [place] [address] Nayeli Persaud documented as of this encounter Visit Diagnoses Not on filedocumented in this encounter Additional Health Concerns Assessment Noted Time PHQ-9 Depression Total Score: 4 10/07/19 24 10:52 AM EDT documented as of this encounter Care Teams Microsoft Infrastructure Consultant Relationship Specialty Start Date End Date Lyla Rodrigez MD [address] [place] [phone] PCP - General Internal Medicine 12/24/22 Geeeamadeleine 07/24/21 documented as of this encounter
--- OUTSIDE RECORDS SUMMARY | 2024-08-25 18:10 | XMS_ITS | Encounter Summary ---
Author Organization [employer] Address [address] [facility] [address] 7t [place] [address] Care Team Providers Care Horticultural Specialty Grower Field Name Role Phone Lyla Rodrigez MD Primary Care Pro vider Reason for Visit * Reason Comments Med Change Request Encounter Details Date Type Department Care Team (Late st Contact Info) Description 07/04/2023 Refill [facility] [address] [place], [place] [phone] Camille Harrison FNP [address] [place] [address] Social History Tobacco Use Types Packs/Day Years [...] t he electric, gas, oil or water [employer] threatened to shut off services in your [...] Description 09/14/2024 2:30 PM EDT Office Visit [facility] ADULT DENTAL [address] [place] [address] Cat Deal DDS [address] [place] [address] 11/11/2024 1:30 PM EDT Office Visit [facility] MED[facility] [address] [place] [address] Lyla Rodrigez MD [address] [place] [address] 01/19/2025 1:00 PM EDT Office Visit [facility] ADULT DENTAL [address] [place] [address] Nayeli Persaud documented as of this encounter Visit Diagnoses Not on filedocumented in this encounter Additional Health Concerns Assessment Noted Time PHQ-9 Depression Total Score: 0 12/04/19 23 2:55 PM EDT documented as of this encounter Care Teams Horticultural Specialty Grower Field Relationship Specialty Start Date End Date Lyla Rodrigez MD [address] [place] [address] PCP - General Internal Medicine 12/24/22 Ave[place] 07/24/21 documented as of this encounter
--- OUTSIDE RECORDS SUMMARY | 2024-08-25 18:10 | XMS_ITS | Clinical Summary ---
Author Organization [employer] Address [address] [place] [address] Care Team Providers Care Syrup Filterer Name Role Phone Lyla Rodrigez MD Primary Care Pro vider Allergies No known active allergies Medications * This document contains information received from the source organization and may not represent a complete record from that organization. divalproex (Depakote ER) 500 MG 24 hr tablet TAKE 2 TABLETS BY MOUTH EVERY DAY IN THE MORNING DIRECTED 023 Active FLUoxetine (PROzac) 20 MG capsule 023 Active mirtazapine (Remeron) 7.5 MG tablet Take 7.5 mg by mouth at bedtime. 023 Active rosuvastatin (Crestor) 10 MG tabletIndications :Mixed hyperlipidemia Take 1 tablet (10 mg) by mouth Once per day. 30 tablet 11 024 2024 Active polyvinyl alcohol (Liquifilm Tears) 1.4 % ophthalmic solution USE 1-2 DROPS IN IN THE LEFT EYE FOUR TIMES DAILY 024 Active clotrimazole-beta methasone (Lotrisone) cream APPLY TOPICALLY 2 TIMES A DAY FOR 4 WEEKS APPLY THIN COAT 2 TIMES PER DAY 024 Active cholecalciferol VITAMIN D (Vitamin D-3) 50 MCG (1999 UT) capsule TAKE 1 CAPSULE BY MOUTH EVERY DAY 90 capsule 1 024 Active [facility] Lubricant Eye Drops 0.4-0.3 % solution ADMINISTER 1 DROP INTO AFFECTED EYE(S) AT NOON AND 1 DROP IN THE EVENING. 15 mL 3 024 Active hydrocortisone 1 % creamIndications: Rash Apply topically 2 times daily. 28 g 024 Active ammonium lactate (Lac-Hydrin) 12 % lotionIndications :Rash Apply topically if needed for dry skin. 225 g 024 2024 Active lisinopril 10 MG tablet TAKE 1 TABLET BY MOUTH EVERY DAY 90 tablet 1 Active fenofibrate micronized (Lofibra) 67 MG capsule TAKE 1 CAPSULE BY MOUTH EVERY DAY WITH FOOD 90 capsule 1 Active Diclofenac Sodium 1 % gelIndications:Ch ronic low back pain without sciatica, unspecified back pain laterality Apply 1 Application topically if needed each day (lumbar pain). 50 g 025 Active lidocaine-priloca ine (Emla) 2.5-2.5 % cream Apply topically if needed each day for mild pain. 30 g 1 025 Active ibuprofen 600 MG tablet Take 1 tablet (600 mg) by mouth every 6 (six) hours if needed for mild pain for up to 10 days. 15 tablet 025 2024 Active cyclobenzaprine (Flexeril) 5 MG tablet TAKE 1 TABLET BY MOUTH 3 TIMES A DAY NEEDED FOR MUSCLE SPASM 024 2024 Discontinued(O ther) fenofibrate micronized (Lofibra) 67 MG capsule TAKE 1 CAPSULE BY MOUTH EVERY DAY WITH FOOD 90 capsule 1 024 2024 Discontinued ibuprofen 800 MG tablet TAKE 1 TABLET BY MOUTH EVERY DAY NEEDED FOR MILD PAIN OR HEADACHES 15 tablet 025 2024 Discontinued ibuprofen 800 MG tablet TAKE 1 TABLET BY MOUTH EVERY DAY NEEDED FOR MILD PAIN OR HEADACHES 15 tablet 025 2024 Discontinued(O ther) lidocaine (Lidoderm) 5 % patchIndications: Chronic low back pain without sciatica, unspecified back pain laterality Apply 1 patch topically Once per day. Remove & discard patch within 12 hours or as directed by . 30 patch 2 025 2024 Discontinued(O ther) Active Problems Problem Noted Date Diagnosed Date Depression, unspecified 08/20/2024 Assessment & Plan (08/23/2024 2:21 PM EDT): During [facility] Consult Korey presenting with depressed mood, Tearful, crying spells , hopelessness, irritable mood, loss of interests/pleasure , sense of isolation/loneliness , change in appetite or weight reduce appetite, changes in sleep difficulty falling asleep; for a period of 18+ mo, for most or all symptoms in the context of unable to identify significant stressors. Pt carries a diagnosis for Bipolar disorder, depression and anxiety per his medical chart. - Pt reported being connected with services. He has at therapist and psychiatrist. Able to manage sxs with medication and using coping strategies (attending bahai, reaching out to social supports). Pt recommended to continue current treatment and reach out to [facility] if additional support is needed. Contact information provided. Tension headache 11/28/2023 Obesity, morbid 10/07/2023 Family [...] 06/20/2021 Overview (12/20/2022): Patient care managed by [facility] Depakote 500 mg 2 tabs in the [...] of cure. Notify results F/u PRN Encounters * This document contains information received from the source organization and may not represent a complete record from that organization. Date Type Department Care Team Description 08/25/2024 2:30 PM EDT Office Visit [facility] [address] [place] [address] ElizabethMurphyCat clark, DDS Asymptomatic irreversible pulpitis (Primary Dx); Symptomatic irreversible pulpitis 08/23/2024 Orders Only [facility] [address] [place] [address], [place] [address] Lyla Rodrigez MD 08/20/2024 1:30 PM EDT Office Visit [address] [address] Lyla Rodrigez MD Chronic low back pain without sciatica, unspecified back pain laterality (Primary Dx); Dietary counseling; Exercise counseling; Bipolar affective disorder, current episode mixed, current episode severity unspecified ([facility]/HCC); Obesity, morbid ([facility]); Health care maintenance; Hyperlipidemia, unspecified hyperlipidemia type; Family history of cancer; Essential hypertension 08/20/[address] [address] Lyla Rodrigez MD Prior Auth Prescription 08/20/2024 Travel 08/20/[address] [address] Lyla Rodrigez MD November08/19/2024 Refill [facility] [address] [place], [place] [phone] Lyla Rodrigez MD 08/12/[address] [address] Lyla Rodrigez MD chart prep 08/07/2024 Refill [facility] [address] [place] [phone] Ramírez Luna MD 07/19/2024 Refill [facility] [address] [place] [address] Lyla Rodrigez MD 07/13/2024 1:00 PM EST Office Visit [facility] [address] [place] [address] Mechelle Price Dental plaque (Primary Dx); Dental calculus; Encounter for dental examination; Asymptomatic irreversible pulpitis; Teeth missing; Periodontal disease 06/15/2024 Telephone [facility] [address] [place], [place] [phone] Lyla Rodrigez MD Appointment Request from Last 3 Months Immunizations Name Administration Dates Next Due Influenza Injectable Quadriv alant Preservative Free IIV4 MDCK 04/23/2023 Influenza injectable quadriv alent IIV4 with preservative 04/21/2017 Influenza injectable quadrivalent preservative f ree 05/14/2021,01/27/2020 Influenza, IIV3, injectable 01/11/2020 Influenza, Injectable, MDCK, preservative free 0 02/02/2024 Tdap 04/21/2017 Family History Medical History Relation [...] Sign Reading Time Taken Comments Blood Pressure 136/78 08/25/2024 2:26 PM EDT Pulse 60 08/20/2024 1:27 PM EDT Temperature 36.7 ??C (98 ??F) 03/17/2024 11:10 AM EST Respiratory Rate 16 08/20/2024 1:27 PM EDT Oxygen Saturation 97% 03/17/2024 11:10 AM EST Inhaled Oxygen Concentration - - Weight 100 kg (221 lb) 08/20/2024 1:27 PM EDT Height 166.4 cm (5' 5.5 ) 08/20/2024 1:27 PM EDT Body Mass Index 36.22 08/20/2024 1:27 PM EDT Plan of Treatment Upcoming Encounters Date Type Department Care Team (Late st Contact Info) Description 09/14/2024 2:30 PM EDT Office Visit [facility] [address] [place] [phone] Cat Deal, DDS [address] [place] [phone] 11/11/2024 1:30 PM EDT Office Visit [facility] [address] [place] [address] Lyal Rodrigez MD [address] [place] [address] [phone] 01/19/2025 1:00 PM EDT Office Visit [facility] [address] [place] [phone] Nayeli Persaud Health Maintenance Due Date Last Done Comments CT Colonography 1975 Colonoscopy 1975 FIT 1975 Sigmoidoscopy 1975 Family Planning (PISQ) 1990 Hepatitis A Vaccines (1 of 2 - Risk 2-dose series) 1994 Hepatitis B Vaccines (1 of 3 - 19+ 3-dose series) 1994 COVID-19 Vaccine ( season) 2024 04/03/2021, 08/22/2020, 07/25/2020 FOBT 07/09/2024 07/09/2023 SDOH Screening 09/24/2024 09/25/2023 Dental Oral Exam 01/14/2025 07/13/2024, , 03/18/2019, Additional history exists Dental Prophylaxis 01/14/2025 07/13/2024, 1 05/18/2018, 09/13/2016, Additional history exists Zoster Vaccines (1 of 2) 2025 Dental X-Ray: Bitewings 07/14/2025 07/14/19 25, 07/25/2023, 03/18/2019, Additional history exists Alcohol/Substance Use Screening 08/20/2025 08/20/2024 Depression Screening 08/23/2025 08/23/2024, 08/24/19 Tobacco Screening 08/25/2025 08/25/2024 Colorectal Cancer Screening 07/09/2026 FIT DNA/Cologuard 07/09/2026 [...] Procedure Name Priority Date/Time Associated Diagnosis Comments XR LUMBAR SPINE 2-3 VIEWS Routine 08/25/2024 3:49 PM EDT Chronic low back pain without sciatica, unspecified back pain laterality CASE PRESENTATION, DETAILED AND EXTENSIVE TREATMENT PLANNING Routine 08/25/2024 2:30 PM EDT 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 4 ENDODONTIC THERAPY, PREMOLAR TOOTH Routine 08/25/2024 2:30 PM EDT 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 COMPREHENSIVE PERIODONTAL EVALUATION - NEW OR ESTABLISHED PATIENT Routine 07/13/2024 1:00 PM EST Dental plaque Dental calculus Encounter for dental examination Asymptomatic irreversible pulpitis Teeth missing Periodontal disease PERIODIC ORAL EVALUATION - ESTABLISHED PATIENT Routine 07/13/2024 1:00 PM EST Dental plaque Dental calculus Encounter for dental examination Asymptomatic irreversible pulpitis Teeth missing Periodontal disease INTRAORAL - PERIAPICAL EACH ADDITIONAL RADIOGRAPHIC IMAGE Routine 07/13/2024 1:00 PM EST INTRAORAL - PERIAPICAL EACH ADDITIONAL RADIOGRAPHIC IMAGE Routine 07/13/2024 1:00 PM EST INTRAORAL - PERIAPICAL EACH ADDITIONAL RADIOGRAPHIC IMAGE Routine 07/13/2024 1:00 PM EST INTRAORAL - PERIAPICAL EACH ADDITIONAL RADIOGRAPHIC IMAGE Routine 07/13/2024 1:00 PM EST INTRAORAL - PERIAPICAL FIRST RADIOGRAPHIC IMAGE Routine 07/13/2024 1:00 PM EST BITEWINGS - 4 RADIOGRAPHIC IMAGES Routine 07/13/2024 1:00 PM EST TOPICAL APPLICATION OF FLUORIDE VARNISH Routine 07/13/2024 1:00 PM EST ORAL HYGIENE INSTRUCTIONS Routine 07/13/2024 1:00 PM EST Dental plaque Dental calculus CASE PRESENTATION, DETAILED AND EXTENSIVE TREATMENT PLANNING Routine 07/13/2024 1:00 PM EST PROPHYLAXIS - ADULT Routine 07/13/2024 1 :00 PM EST Dental plaque Dental calculus PANORAMIC RADIOGRAPHIC IMAGE Routine 05/18/2024 3:30 PM EST HEPATITIS C AB W/REFL TO HCV RNA, QN, PCR Routine 10/23/2023 10:56 AM EDT Annual physical exam HIV 1/2 ANTIGEN/ANTIBODY, FOURTH GENERATION W/RFL Routine 10/23/2023 10:56 AM EDT Annual physical exam LIPID PANEL, STANDARD Routine 10/23/2023 10:56 AM EDT Annual physical exam HM FIT DNA/COLOGUARD CANCER SCREENING Routine 07/09/2023 12:29 PM EST from Last 3 Months or Most Recently Relevant to Health Maintenance Results * XR Lumbar Spine 2-3 Views (08/25/2024 3:49 PM EDT) Anatomical Region Laterality Modality Spine, L-spine Radiographic Jessica ging 08/25/2024 3:49 PM EDT Narrative 08/25/2024 4:23 PM EDT ?[facility] ?[address] ?[place] [address] ?XRay Report ? Signed ? Patient: Amena Eugenie,Korey ? MR#: [id number] ? : 1975 ?Acct:[id number] ? Age/Sex: 49 / M ?ADM Date: //25 ? Loc: HO.HHCX ? Attending Dr: Lyla Toledo MD ? Ordering Physician: Lyla Rdorigez MD ?? Date of Service: 08/25/24 ?? Procedure(s): XR lumbar spine 2-3V ?? Accession Number(s): [id number] ? cc: Lyla Rodrigez MD ? EXAMINATION: ?? XR LUMBOSACRAL SPINE ? CLINICAL INFORMATION: ?? pt w chronic lower back pain ? COMPARISON: ?? None available. ? TECHNIQUE: ?? Three views of the lumbosacral spine. ? FINDINGS: ?? No significant scoliosis. Normal lordosis. No subluxations. ?? No acute fracture, or suspicious bone lesion. ?? Minimal wedging of the ventral aspect of T12, chronic appearance. ?? Mild multilevel disc degeneration present with disc osteophytic spurs ?? ventrally at L2-3 and L3-4. ? Normal facet alignment. No significant facet degeneration. ? Normal-appearing SI joints and sacrum. ? No soft tissue abnormalities. ? XR/XR lumbar spine 2-3V ?? IMPRESSION: ?? 1. No acute bony abnormalities. ?? 2. Chronic mild spondylosis as discussed. ? Electronically signed by: ??Raoul Wilhelm MD ??08/25/2024 04:20 PM EDT RP ? Dictated By: ?Raoul Wilhelm MD ? Signed By: ?<Electronically signed by Raoul Wilhelm MD in OV> ?08/25/24 1620 ? DD/ 1549 ? TD/TT: 08/25/24 1610 ? Director Of Career Services: ? Procedure Note Luizwillianedmar, Image - 08/25/[address] [address] XRay Report Signed Patient: Korey Caraballo MR#: [id number] : 1975Acct:[id number] Age/Sex: 49 / MADM Date: 08/25/24 Loc: HO.HHCX Attending Dr: Lyla Toledo MD Ordering Physician: Lyla Rodrigez MD Date of Service: 08/25/24 Procedure(s): XR lumbar spine 2-3V Accession Number(s): [id number] cc: Lyla Rodrigez MD EXAMINATION: XR LUMBOSACRAL SPINE CLINICAL INFORMATION: pt w chronic lower back pain COMPARISON: None available. TECHNIQUE: Three views of the lumbosacral spine. FINDINGS: No significant scoliosis. Normal lordosis. No subluxations. No acute fracture, or suspicious bone lesion. Minimal wedging of the ventral aspect of T12, chronic appearance. Mild multilevel disc degeneration present with disc osteophytic spurs ventrally at L2-3 and L3-4. Normal facet alignment. No significant facet degeneration. Normal-appearing SI joints and sacrum. No soft tissue abnormalities. XR/XR lumbar spine 2-3V IMPRESSION: 1. No acute bony abnormalities. 2. Chronic mild spondylosis as discussed. Electronically signed by: Raoul Wilhelm MD 08/25/2024 04:20 PM EDT RP Dictated By: Raoul Wilhelm MD Signed By: <Electronically signed by Raoul Wilhelm MD in OV> 08/25/24 1620 DD/ 1549 TD/TT: 08/25/24 1610 Director Of Career Services: Lyla Toledo MD IMG XR PROCEDURES Final Result * Hepatitis C Antibody with Reflex to [...] LES Final Result [facility] [address] [place] [phone] * HIV-1/2 Antigen and Antibodies, Fourth Generation, with Reflexes (10/23/2023 10:56 AM EDT) HIV AB/AG Nonreactive Nonreactive [facility] Comment:HIV-1 p24 Ag and/or HIV-1/HIV-2 Ab not detected.A test result that is nonreactive does not exclude thepossibility of exposure to or infection with HIV-1 and/orHIV-2. Nonreactive results in this assay for individualswith prior exposure to HIV-1 and/or HIV-2 may be due toantigen and antibody levels that are below the limit ofdetection of this assay.The amprice Alinity HIV Ag/Ab Combo assay result andsupplemental assay results should be interpreted inconjunction with the patient's clinical presentation,history and other laboratory results. If the results areinconsistent with clinical evidence, additional testing issuggested to confirm the result. Blood Venous blood specimen / Unknown 10/23/2023 10:56 AM EDT 10/23/2023 11:49 AM EDT us Lyla Toledo MD LAB BLOOD ORDERAB LES Final Result [facility] [address] [place] [phone] * (ABNORMAL) Lipid Panel, Standard (10/23/2023 10:56 AM EDT) Triglycerides 72 <150 mg/dL [facility] Comment:Desirable Triglyceri de: less than [...] 190 mg/dL HDL Cholesterol 49 >40 mg/dL [facility] Comment:Desirable HDL: great er than 40 mg/dL Note: This HDL assay may give artificially low results in patients with liver disease. Blood Venous blood specimen / Unknown 10/23/2023 10:56 AM EDT 10/23/2023 11:49 AM EDT us Lyla Toledo MD LAB BLOOD ORDERAB LES Final Result [facility] [address] [place] [phone] * FIT DNA/Cologuard Cancer Screening (07/09/2023 12:29 PM EST) Stool Historical Provider HEALTH MAINTENANCE Final Result from Last 3 Months or Most Recently Relevant to Health Maintenance Insurance [facility] < 65 DENTAL - [facility] Care Teams Syrup Filterer Relationship Specialty Start Date End Date Lyla Rodrigez MD [address] [place] [address] PCP - General Internal Medicine 12/24/22 Aveanna 07/24/21
--- OUTSIDE RECORDS SUMMARY | 2024-08-25 18:10 | XMS_ITS | Encounter Summary ---
Author Organization [employer] [facility] Address [address] [place] [address] [address] [place] [address] Care Team Providers Care Site Physician Name Role Phone Tammy Reynoso THIRD RIGGER Primary Care Provider [phone]- [phone] Lyla Rodrigez MD Primary Care Pro vider Encounter Details Date Type Department Care Team (Late st Contact Info) Description 08/06/2022 Orders Only [facility] [address] [place], [place] [phone] Jenise Reyes LPN Social History Tobacco Use [...] Department Care Team (Late Contact Info) Description 09/14/2024 2:30 PM EDT Office Visit [facility] [address] [place] [phone] Lukas-Cat Murphy, DDS [address] [place] [address] 11/11/2024 1:30 PM EDT Office Visit [facility] [address] [place] [address] Lyla Rodrigez MD [address] [place] [address] 01/19/2025 1:00 PM EDT Office Visit [facility] [address] [place] [address] Nayeli Persaud documented as of this encounter Visit Diagnoses Not on filedocumented in this encounter Care Teams Site Physician Relationship Specialty Start Date End Date Tammy Reynoso FNP PCP - General Family Medicine 03/02/21 12/23/22 Lyla Rodrigez MD [address] [place] [address] PCP - General Internal Medicine 12/24/22 Lizett 07/24/21 documented as of this encounter
--- OUTSIDE RECORDS SUMMARY | 2024-08-25 18:10 | XMS_ITS | Encounter Summary ---
Author Organization [employer] [facility] Address [address] [place] [address] [address] [place] [address] Care Team Providers Care News Videographer Name Role Phone Tammy Reynoso DEPUTY CORONER INVESTIGATOR Primary Care Provider [phone]- [phone] Lyla Rodrigez MD Primary Care Pro vider Encounter Details Date Type Department Care Team (Late st Contact Info) Description 11/04/2022 Orders Only [facility] [address] [place], [place] [phone] Jenise Reyes LPN Social History Tobacco Use [...] Description 09/14/2024 2:30 PM EDT Office Visit [facility] [address] [place] [address] Lukas-Cat Murphy, DDS [address] [place] [address] 11/11/2024 1:30 PM EDT Office Visit [facility] [address] [place] [address] Lyla Rodrigez MD [address] [place] [address] 01/19/2025 1:00 PM EDT Office Visit [facility] [address] [place] [address] Nayeli Persaud documented as of this encounter Visit Diagnoses Not on filedocumented in this encounter Care Teams News Videographer Relationship Specialty Start Date End Date Tammy Reynoso FNP PCP - General Family Medicine 03/02/21 12/23/22 Lyla Rodrigez MD [address] [place] [address] PCP - General Internal Medicine 12/24/22 Lizett 07/24/21 documented as of this encounter
--- OUTSIDE RECORDS SUMMARY | 2024-08-25 18:10 | XMS_ITS | Encounter Summary ---
Author Organization [employer] [facility] Address [address] [place] [address] [address] [place] [address] Care Team Providers Care Pad Tufter Name Role Phone Tammy Reynoso BULK COOLER INSTALLER Primary Care Provider [phone]- [phone] Lyla Rodrigez MD Primary Care Pro vider Encounter Details Date Type Department Care Team (Late st Contact Info) Description 09/23/2022 Orders Only [facility] [address] [place], [place] [phone] Jenise Reyes LPN Social History Tobacco Use [...] 2:30 PM EDT Office Visit [facility] [address] [place] [phone] Lukas-Cat Murphy, DDS [address] [place] [address] 11/11/2024 1:30 PM EDT Office Visit [facility] [address] [place] [address] Lyla Rodrigez MD [address] [place] [address] 01/19/2025 1:00 PM EDT Office Visit [facility] [address] [place] [address] Nayeli Persaud documented as of this encounter Visit Diagnoses Not on filedocumented in this encounter Care Teams Pad Tufter Relationship Specialty Start Date End Date Tammy Reynoso FNP PCP - General Family Medicine 03/02/21 12/23/22 Lyla Rodrigez MD [address] [place] [address] PCP - General Internal Medicine 12/24/22 Lizett 07/24/21 documented as of this encounter
--- OUTSIDE RECORDS SUMMARY | 2024-08-25 18:10 | XMS_ITS | Encounter Summary ---
Author Organization [employer] Address [address] [facility] [address] [place] [address] Care Team Providers Care Or Director Name Role Phone Lyla Rodrigez MD Primary Care Pro vider Encounter Details Date Type Department Care Team (Late st Contact Info) Description 08/23/2024 Orders Only [facility] [address] [place] [address] Lyla Rodrigez MD [address] [place], [place] [phone] Social History Tobacco Use Types Packs/Day Years [...] Description 09/14/2024 2:30 PM EDT Office Visit [facility] [address] [place] [phone] Cat Deal DDS [address] [place] [address] 11/11/2024 1:30 PM EDT Office Visit [facility] [address] [place] [address] Lyla Rodrigez MD [address] [place] [address] 01/19/2025 1:00 PM EDT Office Visit [facility] [address] [place] [address] Nayeli Persaud documented as of this encounter Visit Diagnoses Not on filedocumented in this encounter Additional Health Concerns Assessment Noted Time PHQ-9 Depression Total Score: 8 08/24/19 25 11:57 AM EDT documented as of this encounter Care Teams Or Director Relationship Specialty Start Date End Date Lyla Rodrigez MD [address] [place] [phone] PCP - General Internal Medicine 12/24/22 Aveanna 07/24/21 documented as of this encounter
--- OUTSIDE RECORDS SUMMARY | 2024-08-25 18:10 | XMS_ITS | Encounter Summary ---
Author Organization [employer] [facility] Address [address] [facility] [address] [place] [address] Care Team Providers Care It Application Support Analyst Name Role Phone Lyla Rodrigez MD Primary Care Pro vider Reason for Referral * Consultation (Routine) - Closed Specialty Diagnoses / Procedures Referred By Contjeremi t Referred To Contact Physical Therapy Diagnoses Chronic low back pain without sciatica, unspecified back pain laterality Lyla Rodrigez MD [address] [place] [address] Phone: tel: fax: [facility] [place] Physical Therapy [address] [place], [place] Phone: tel: fax: Referral ID Status Reason Start Date Expiration Date V isits Requested Visits Authorized [id number] Closed Specialty Services Required 08/20/2024 08/20/2025 1 1 Encounter Details Date Type Department Care Team (Latest Contact Info) Description 08/20/2024 1:30 PM EDT Office Visit [facility] MED[facility]INE [address] [place] [address] [phone] Lyla Rodrigez MD [address] [place] [address] Chronic low back pain without sciatica, unspecified back pain laterality (Primary Dx); Dietary counseling; Exercise counseling; Bipolar affective disorder, current episode mixed, current episode severity unspecified (CMS/HCC); Obesity, morbid (CMS/HCC); Health care maintenance; Hyperlipidemia, unspecified hyperlipidemia type; Family history of cancer; Essential hypertension Social History Tobacco Use Types Packs/Day Years [...] your housing situation today? I have daisy ovi 03/17/[address] you li [...] AM EDT documented as of this encounter Last Filed Vital Signs Vital Sign Reading Time Taken Comments Blood Pressure 118/72 08/20/2024 1:27 PM EDT Pulse 60 08/20/2024 1:27 PM EDT Temperature - - Respiratory Rate 16 08/20/2024 1:27 PM EDT Oxygen Saturation - - Inhaled Oxygen Concentration - - Weight 100 kg (221 lb) 08/20/2024 1:27 PM EDT Height 166.4 cm (5' 5.5 ) 08/20/2024 1:27 PM EDT Body Mass Index 36.22 08/20/2024 1:27 PM EDT documented in this encounter Progress Notes * Lyla Toledo MD - 08/20/2024 1:30 PM EDT Subjective Patient ID: Korey Traore is a 49 y.o. male who presents for follow-up appointment HPI Has VNA 49 y o M with PMX of Obesity ,HTN, IBS,HLD,Bipolar dx,-Hx Pylori s/p tx w [facility] ag stool test neg 11/2022 Comes today for f up apt Pt reports feeling well,no major complaints -------- Assessment and Plan: Health care maintenance -Annual exam done 09/2023 -colonoscopy : never,-pt refused . 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 -referred to genetics [facility] --from records test done in 02/2024 increase risk for melanom 2% ---will do skin exam and consider dermatology rferral if need at next apt Penile discomfort Currently asymptomatic -f w urologist 09/2023 --px last clotrimazole-betamethasone 1-0.05 % Lumbalgia Reports ongoing lower back pain for years on and off denies trauma no neurologic associated symptoms with pain on exam some paraspinal point tenderness. -lumbar XR -tylenol -Lidoderm patch -diclofenac topical -PT referred today -advised avoit NSAIDS to take only sporadically Review of Systems Chronic lumbalgia Objective BP 118/72 (BP Location: Right arm, Patient Position: Sitting, BP Cuff Size: Large adult) Pulse 60 Resp 16 Ht 5' 5.5 (1.664 m) Wt 221 lb (100 kg) BMI 36.22 kg/m?? Physical Exam Constitutional: Appearance: Normal appearance. He is obese. Musculoskeletal: General: Tenderness present. Comments: There is tenderness in the right side of lower back no vertebral point tenderness, neurologic exam of lower extremities normal Neurological: Mental Status: He is alert. Sensory: No sensory deficit. Motor: No weakness. Assessment/Plan Problem List Items Addressed This Visit Bipolar disorder ([facility]) Essential hypertension Hyperlipidemia Health care maintenance Obesity, morbid ([facility]) Family history of cancer Other Visit Diagnoses Chronic low back pain without sciatica, unspecified back pain laterality - Primary Relevant Medications lidocaine (Lidoderm) 5 % patch Diclofenac Sodium 1 % gel Other Relevant Orders XR Lumbar Spine 2-3 Views Referral to Physical Therapy Dietary counseling Exercise counseling documented in this encounter Miscellaneous Notes * Result Encounter Note - Lyla Toledo MD - 08/20/2024 1:30 PM EDT Please inform pt that lumbar XR is showing No acute bony abnormalities. Chronic mild spondylosis ,degenerative changes Advise to start PT as referred before Thanks documented in this encounter Plan of Treatment Upcoming Encounters Date Type Department Care Team (Late st Contact Info) Description 09/14/2024 2:30 PM EDT Office Visit [facility] ADULT DENTAL [address] [place] [address] Gaytan-MurphyCat clark, DDS [address] [place], [place] [phone] 11/11/2024 1:30 PM EDT Office Visit [facility] [address] [place] [address] Lyla Rodrigez MD [address] [place] [address] 01/19/2025 1:00 PM EDT Office Visit [facility] ADULT DENT[facility] [address] [place] [address] Nayeli Persaud Scheduled Referrals Name Type Priority Associated Diagnoses Orde r Schedule Referral to Physical Therapy Outpatient Referral Routine Chronic low back pain without sciatica, unspecified back pain laterality Expected: 08/20/2024 (Approximate), Expires: 08/20/2025 documented as of this encounter Procedures Procedure Name Priority Date/Time Associated Diagnosis Comments XR LUMBAR SPINE 2-3 VIEWS Routine 08/25/2024 3:49 PM EDT Chronic low back pain without sciatica, unspecified back pain laterality documented in this encounter Results * XR Lumbar Spine 2-3 Views (08/25/2024 3:49 PM EDT) Anatomical Region Laterality Modality Spine, L-spine Radiographic Jessica ging 08/25/2024 3:49 PM EDT Narrative 08/25/2024 4:23 PM EDT ?[facility] ?[address] [facility]. ?[place] [address] ?XRay Report ? Signed ? Patient: Amena Eugenie,Korey ? MR#: [id number] ? : 1975 ?Acct:[id number] ? Age/Sex: 49 / M ?ADM Date: 04/16/25 ? Loc: HO.HHCX ? Attending Dr: Lyla Toledo MD ? Ordering Physician: Lyla Rodrigez MD ?? Date of Service: 08/25/24 ?? Procedure(s): XR lumbar spine 2-3V ?? Accession Number(s): [id number] ? cc: Lyla Rodrigez MD ? EXAMINATION: [...] DD/ 1549 ? TD/TT: 08/25/24 1610 ? Utility Mechanic Supervisor: ? Procedure Note Nydia, Image - 08/25/2024 [place] [address] XRay Report Signed Patient: Korey Caraballo MR#: [id number] : 1975Acct:[id number] Age/Sex: 49 / MADM Date: 08/25/24 Loc: HO.HHCX Attending Dr: Lyla Toledo MD Ordering Physician: Lyla Rodrigez MD Date of Service: 08/25/24 Procedure(s): XR lumbar spine 2-3V Accession Number(s): [id number] cc: Lyla Rodrigez MD EXAMINATION: XR LUMBOSACRAL [...] Raoul Wilhelm MD 08/25/2024 04:20 PM EDT Dictated By: Raoul Wilhelm MD Signed By: <Electronically signed by Raoul Wilhelm MD in OV> 08/25/24 1620 DD/ 1549 TD/TT: 08/25/24 1610 Utility Mechanic Supervisor: Lyla Toledo MD IMG XR PROCEDURES Final Result documented in this encounter Visit Diagnoses Diagnosis Chronic low back pain without sciatica, unspecified back pain laterality- Primary Dietary counseling Dietary surveillance and counseling Exercise counseling Bipolar affective disorder, current episode mixed, current episode severity unspecified (CMS/HCC) Obesity, morbid (CMS/HCC) Morbid obesity Health care maintenance Hyperlipidemia, unspecified hyperlipidemia type Family history of cancer Family history of unspecified malignant neoplasm Essential hypertension Unspecified essential hypertension documented in this encounter Additional Health Concerns Assessment Noted Time PHQ-9 Depression Total Score: 4 10/07/19 24 10:52 AM EDT documented as of this encounter Care Teams It Application Support Analyst Relationship Specialty Start Date End Date Lyla Rodrigez MD [address] [place] [phone] PCP - General Internal Medicine 12/24/22 Aveanna 07/24/21 documented as of this encounter
--- OUTSIDE RECORDS SUMMARY | 2024-08-25 18:10 | XMS_ITS | Encounter Summary ---
Author Organization [employer] Address [address] [facility] [address] 7[address] [place] [address] Care Team Providers Care Personal Care Assistant Name Role Phone Lyla Rodrigez MD Primary Care Pro vider Reason for Visit * Reason Comments Med Refill Encounter Details Date Type Department Care Team ([facility] st Contact Info) Description 04/22/2024 Refill [facility] MED[facility] [address] [place], [place] [phone] Kimberly Monet NP [address] [place], [place] [phone] Acute cystitis without hematuria Social History Tobacco [...] Description 09/14/2024 2:30 PM EDT Office Visit [facility] ADULT DENTAL [address] [place] [address] Cat Deal DDS [address] [place] [address] 11/11/2024 1:30 PM EDT Office Visit [facility] MEDICINE [address] [place] [address] Lyla Rodrigez MD [address] [place] [address] 01/19/2025 1:00 PM EDT Office Visit [facility] ADULT DENTAL [address] [place] [address] Nayeli Persaud documented as of this encounter Visit Diagnoses Diagnosis Acute cystitis without hematuria documented in this encounter Additional Health Concerns Assessment Noted Time PHQ-9 Depression Total Score: 4 10/07/19 24 10:52 AM EDT documented as of this encounter Care Teams Personal Care Assistant Relationship Specialty Start Date End Date Lyla Rodrigez MD [address] [place] [phone] PCP - General Internal Medicine 12/24/22 Aveannrex 07/24/21 documented as of this encounter
--- OUTSIDE RECORDS SUMMARY | 2024-08-25 18:10 | XMS_ITS | Encounter Summary ---
Author Organization [employer] Address [address] [facility] 7t [place] [address] Care Team Providers Care Setup Operator Name Role Phone Lyla Rodrigez MD Primary Care Pro vider Reason for Visit * Reason Comments Med Refill Encounter Details Date Type Department Care Team ([facility] st Contact Info) Description 08/19/2024 Refill [facility] [address] [place], [place] [phone] Lyla Rodrigez MD [address] [place] [address] Social History Tobacco Use Types Packs/Day Years [...] Description 09/14/2024 2:30 PM EDT Office Visit [facility] ADULT DENTAL [address] [place] [address] Cat Deal DDS [address] [place] [address] 11/11/2024 1:30 PM EDT Office Visit [facility] MED[facility]INE [address] [place] [address] Lyla Rodrigez MD [address] [place] [address] 01/19/2025 1:00 PM EDT Office Visit [facility] ADULT DENTAL [address] [place] [address] Nayeli Persaud documented as of this encounter Visit Diagnoses Not on filedocumented in this encounter Additional Health Concerns Assessment Noted Time PHQ-9 Depression Total Score: 4 10/07/19 24 10:52 AM EDT documented as of this encounter Care Teams Setup Operator Relationship Specialty Start Date End Date Lyla Rodrigez MD [address] [place] [phone] PCP - General Internal Medicine 12/24/22 Aveannrex 07/24/21 documented as of this encounter
--- OUTSIDE RECORDS SUMMARY | 2024-08-25 18:10 | XMS_ITS | Encounter Summary ---
Author Organization [employer] Address [address] [facility] 7t [place] [address] Care Team Providers Care Community Service Representative Name Role Phone Lyla Rodrigez MD Primary Care Pro vider Reason for Visit * Reason Comments root canal tooth 4 Encounter Details Date Type Department Care Team ([facility] st Contact Info) Description 08/25/2024 2:30 PM EDT Office Visit [facility] ADULT DENTAL [address] [place] [address] Cat Deal DDS [address] [place] [address] Asymptomatic irreversible pulpitis (Primary Dx); Symptomatic irreversible pulpitis Social History Tobacco Use Types Packs/Day Years [...] Pressure 136/78 08/25/2024 2:26 PM EDT Pulse - - Temperature - - Respiratory Rate - - Oxygen Saturation - - Inhaled Oxygen Concentration - - Weight - - Height - - Body Mass Index - - documented in this encounter Progress Notes * Cat Deal DDS - 08/25/2024 2:30 PM EDT Patient ID: Korey Traore is a 49 y.o. male. Time Out: Date: 08/25/2024 Tooth: #4 Procedure: Root Canal Verified the above with patient, public relations assistant, and provider. Confirmed via patient's chart, intraorally and by radiographs. Computer Systems Information Director: not applicable Medical Hx: Vitals: Blood pressure 136/78. Medications, Med Hx reviewed with patient and updated in chart. Consent Obtained: The risks, benefits, indications, potential complications, and alternatives were explained to the patient and informed consent was obtained with good understanding. Treatment Provided: Dental procedures in this visit D3320 - ENDODONTIC THERAPY, PREMOLAR TOOTH 4 (Completed) Service provider: Cat Deal DDS Billing provider: Cat Deal DDS [id number] - CASE PRESENTATION, DETAILED AND EXTENSIVE TREATMENT PLANNING (Completed) Service provider: Cat Deal DDS Billing provider: Cat Deal DDS Diagnosis: Irreversible pulpitis Topical: 20% Benzocaine Anesthesia: 2% Lidocaine (Xylocaine) w/ 1:100,000 epinephrine Number of Cartridges: 1.5 Injection Type: Buccal infiltration, Palatal infiltration, Anterior superior alveolar nerve block, and Nasopalatine nerve block Confirmed profound anesthesia. Isolation: [place] Created access preparation. Working length radiograph taken: 19.5 mm Irrigated with: 6% NaOCl, RC Prep, and 17% EDTA Instrumented using: Hand files Final File: 40 Multi-Step Visit: N/A Master cone size: 40 Master cone radiograph taken. Sealer: Bioceramic Sealer Obturation Material: Trent Percha Removed excess trent percha. Restorative Material: Cavit Final radiograph taken. Patient tolerated procedure well, no complications. Post op instructions given. Dismissed in good condition. POC and crown needed for final anabaptist- extensive MOD composite with recurrent decay is observed. NV: POC and crown prep Net Sorter: Jenise Claire Dentist: Cat Deal DDS documented in this encounter Plan of Treatment Upcoming Encounters Date Type Department Care Team (Late st Contact Info) Description 09/14/2024 2:30 PM EDT Office Visit [facility] ADULT DENTAL [address] [place] [phone] Cat Deal DDS [address] [place] [address] 11/11/2024 1:30 PM EDT Office Visit [facility] MEDICINE [address] [place] [address] Lyla Rodrigez MD [address] [place] [address] 01/19/2025 1:00 PM EDT Office Visit [facility] ADULT DENTAL [address] [place] [address] Nayeli Persaud documented as of this encounter Procedures Procedure Name Priority Date/Time Associated Diagnosis Comments 4 ENDODONTIC THERAPY, PREMOLAR TOOTH Routine 08/25/2024 2:30 PM EDT 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 CASE PRESENTATION, DETAILED AND EXTENSIVE TREATMENT PLANNING Routine 08/25/2024 2:30 PM EDT 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 documented in this encounter Visit Diagnoses Diagnosis Asymptomatic irreversible pulpitis- Primary Symptomatic irreversible pulpitis documented in this encounter Additional Health Concerns Assessment Noted Time PHQ-9 Depression Total Score: 8 08/24/19 25 11:57 AM EDT documented as of this encounter Care Teams Community Service Representative Relationship Specialty Start Date End Date Lyla Rodrigez MD [address] [place] [address] PCP - General Internal Medicine 12/24/22 Geeeamadeleine 07/24/21 documented as of this encounter
--- OUTSIDE RECORDS SUMMARY | 2024-08-25 18:10 | XMS_ITS | Encounter Summary ---
Author Organization [employer] Address [address] [facility] 7t [place] [address] Care Team Providers Care Manager Sas Name Role Phone Lyla Rodrigez MD Primary Care Pro vider Encounter Details Date Type Department Care Team (Latest Contact Info) Description 08/20/2024 Travel Social History Tobacco Use Types Packs/Day Years [...] Description 09/14/2024 2:30 PM EDT Office Visit [facility] ADULT DENTAL [address] [place] [address] Cat Deal DDS [address] [place] [address] 11/11/2024 1:30 PM EDT Office Visit [facility] MEDICINE [address] [place] [address] Lyla Rodrigez MD [address] [place] [address] 01/19/2025 1:00 PM EDT Office Visit [facility] ADULT DENTAL [address] [place] [address] Nayeli Persaud documented as of this encounter Visit Diagnoses Not on filedocumented in this encounter Additional Health Concerns Assessment Noted Time PHQ-9 Depression Total Score: 4 10/07/19 24 10:52 AM EDT documented as of this encounter Care Teams Manager Sas Relationship Specialty Start Date End Date Lyla Rodrigez MD [address] [place], [place] [phone] PCP - General Internal Medicine 12/24/22 Lizett 07/24/21 documented as of this encounter
--- OUTSIDE RECORDS SUMMARY | 2024-08-25 18:10 | XMS_ITS | Encounter Summary ---
Author Organization [facility] Address [address] [facility] 7t [place] [address] Care Team Providers Care Mathematical Scientist Name Role Phone Lyla Rodrigez MD Primary Care Pro vider Reason for Visit * Reason Onset Date Comments November recall 08/20/2024 Encounter Details Date Type Department Care Team (Late st Contact Info) Description 08/20/2024 Telephone [facility] MEDICINE [address] [place] [address] Lyla Rodrigez MD [address] [place] [address] November recall Social History Tobacco Use Types Packs/Day Years [...] encounter Miscellaneous Notes * Telephone Encounter - Shanique Mckeon - 08/20/2024 10:06 AM EDT Pt returning phone call. Pt agree to appointment on 11/11 at 1:30 PM with pcp for f/u BP & Labs. * Telephone Encounter - Nubia Perdomo MA - 08/20/2024 9:06 AM EDT Telephone call to patient to schedule a recall appointment. No answer, Left voicemail to return call to clinic.. Recall letter sent. Visit type: Follow Up Appointment notes: BP & Labs Month due: November With: Madhav Please schedule appointment above if patient returns call documented in this encounter Plan of Treatment Upcoming Encounters Date Type Department Care Team (Late st Contact Info) Description 09/14/2024 2:30 PM EDT Office Visit [facility] ADULT DENTAL [address] [place] [address] Cat Deal DDS [address] [place] [address] 11/11/2024 1:30 PM EDT Office Visit [facility] MEDICINE [address] [place], [place] [phone] Lyla Rodrigez MD [address] [place] [address] 01/19/2025 1:00 PM EDT Office Visit [facility] ADULT DENTAL [address] [place], [place] [phone] Nayeli Persaud documented as of this encounter Visit Diagnoses Not on filedocumented in this encounter Additional Health Concerns Assessment Noted Time PHQ-9 Depression Total Score: 4 10/07/19 24 10:52 AM EDT documented as of this encounter Care Teams Mathematical Scientist Relationship Specialty Start Date End Date Lyla Rodrigez MD [address] [place] [phone] PCP - General Internal Medicine 12/24/22 Aveanna 07/24/21 documented as of this encounter
--- OUTSIDE RECORDS SUMMARY | 2024-08-25 18:10 | XMS_ITS | Encounter Summary ---
Author Organization [employer] [facility] Address [address] [facility] 7t [place] [address] Care Team Providers Care Cellar Pumper Name Role Phone Tammy Reynoso ACCOUNT REPRESENTATIVE Primary Care Provider [phone] Lyla Rodrigez MD Primary Care Pro vider Encounter Details Date Type Department Care Team (Latest Contact Info) Description 03/18/2019 Abstract [facility] CONVERSIONS Dental, Provider, DDS Social History [...] Encounters Date Type Department Care Team ( Contact Info) Description 09/14/2024 2:30 PM EDT Office Visit [facility] ADULT DENTAL [address] [place] [address] Cat Deal DDS [address] [place] [address] 11/11/2024 1:30 PM EDT Office Visit [facility] MEDICINE [address] [place] [address] Lyla Rodrigez MD [address] [place] [address] 01/19/2025 1:00 PM EDT Office Visit [facility] ADULT DENTAL [address] [place] [address] Nayeli Persaud documented as of this encounter Visit Diagnoses Not on filedocumented in this encounter Care Teams Cellar Pumper Relationship Specialty Start Date End Date Tammy Reynoso FNP PCP - General Family Medicine 03/02/21 12/23/22 Lyla Rodrigez MD [address] [place] [address] [place] [id number] PCP - General Internal Medicine 12/24/22 Lizett 07/24/21 documented as of this encounter
== END 2024-08-25 15:49 | disposition home or self-care (01) ==
LOC: HO.HHCX 15:48
PROVIDERS: Visit Provider Student in an Organized Health Care Education/Training Program
DX: M54.50 Low back pain, unspecified (principal); G89.29 Other chronic pain
CPT/HCPCS: 72100

== ENCOUNTER → 2024-08-25 15:49 | Outpatient (BNV) | payer OTHER, SELFPAY | PROVIDERS: Visit Provider Radiology Diagnostic Radiology | DX: G89.29 Other chronic pain (principal); M54.50 Low back pain, unspecified | CPT/HCPCS: 72100 ==